=== PATIENT | female | born 1995 ===

== ENCOUNTER 2019-05-27 21:12 | Inpatient (IN) | payer SELFPAY ==
[2019-05-27] MEDS ORDERED: PEPCID IV ONE (21:17)
[2019-05-27] MEDS ORDERED: NACL 0.9% 1000 ML 1,000 ML IV ONE (21:17)
--- NOTE | 2019-05-27 21:18 | Emergency Department Report ---
ED General Adult HPI - General Chief complaint: Psych Stated complaint: no quierannette vivir Time Seen by Provider: 05/27/19 21:16 Source: patient, EMS (verbal report received from EMS.ems notes not available at time of chart dictation), RN notes reviewed Mode of arrival: Stretcher Limitations: No Limitations - History of Present Illness Initial comments: This is a 23-year-old female. The patient is brought to the hospital by EMS for reported suicide attempt. The patient to me states in Irish that she wants to . She denies physical pain. As per EMS, the patient drank an unknown quantity of bleach, ammonia and had an episode of unresponsivenes s/unconsciousness. Apparently, she fell outside In the field, the patient was awake and alert as per EMS, and was speaking in full sentences. The patient denies physical pain. The patient would not tell me what she drank. The patient will not tell me how much she drank. The patient states she is not having physical pain. The patient states she wants to The patient will not describe exacerbating or relieving factors. The patient follows commands. -: Sudden, This evening Quality: other Consistency: other Improves with: other Worsens with: other Associated Symptoms: other - Related Data Home Medications Medication Instructions Recorded Confirmed Last Taken No Known Home Medications [No 05/27/19 05/27/19 Unknown Reported Home Medications] Allergies Allergy/AdvReac Type Severity Reaction Status Date / Time No Known Allergies Allergy Unverified 05/27/19 22:46 ED Review of Systems ROS: Stated complaint: UNRESPONSIVE Other details as noted in HPI Comment: patient not forthcoming Cardiovascular: denies: chest pain Gastrointestinal: denies: abdominal pain ED Past Medical Hx - Medications Home Medications: Home Medications Medication Instructions Recorded Confirmed Last Taken Type No Known Home Medications [No 05/27/19 05/27/19 Unknown History Reported Home Medications] ED Physical Exam - General Limitations: Language Barrier General appearance: alert, anxious - Head Head exam: Present: atraumatic, normocephalic - Eye Eye exam: Present: normal appearance, EOMI - ENT ENT exam: Present: normal orophraynx, mucous membranes moist, normal external ear exam, other (patient speaking in full sentences. There is no stridor. There is no dysphonia. The patient will not open up her mouth to allow me to see the posterior pharynx. The visualized portion of the tongue is within normal limits. There is no abrasion noted to the right lateral aspect of the lower lip) - Neck Neck exam: Present: normal inspection, full ROM. Absent: tenderness, meningismus - Respiratory Respiratory exam: Present: normal lung sounds bilaterally. Absent: respiratory distress - Cardiovascular Cardiovascular Exam: Present: normal rhythm, tachycardia, normal heart sounds. Absent: systolic murmur, diastolic murmur, rubs, gallop - GI/Abdominal GI/Abdominal exam: Present: soft. Absent: distended, tenderness, guarding, rebound, rigid, pulsatile mass - Extremities Exam Extremities exam: Present: normal inspection, full ROM, other (2+ pulses noted in the bilateral upper, lower extremities. Compartments soft. No long bony tenderness. The pelvis is stable.). Absent: pedal edema, joint swelling, calf tenderness - Back Exam Back exam: Present: normal inspection, full ROM. Absent: tenderness, CVA tenderness (R), CVA tenderness (L), paraspinal tenderness, vertebral tenderness - Neurological Exam Neurological exam: Present: alert, other (there is no facial droop. The tongue is midline. The extraocular movements are intact bilaterally. Patient speaking in complete sentences. There is no stridor. There is no dysphonia. There is 5/5 strength right arm, right leg, left arm, left leg sensation is intact to light touch bilateral upper, lower extremities.) - Psychiatric Psychiatric exam: Present: anxious - Skin Skin exam: Present: warm, dry, intact, normal color. Absent: rash ED Course Vital Signs 05/27/19 05/27/19 05/27/19 21:20 21:21 21:31 Temperature 98.6 F Pulse Rate 117 H 122 H Respiratory 20 15 9 L Rate Blood Pressure 113/73 106/72 O2 Sat by Pulse 99 97 96 Oximetry 05/27/19 05/27/19 05/27/19 21:45 22:00 22:17 Temperature Pulse Rate 113 H 106 H 111 H Respiratory 16 18 13 Rate Blood Pressure 112/70 106/64 106/64 O2 Sat by Pulse 99 100 98 Oximetry 05/27/19 05/27/19 05/27/19 22:30 22:45 23:00 Temperature Pulse Rate 109 H 114 H 109 H Respiratory 19 18 17 Rate Blood Pressure 108/64 111/67 108/63 O2 Sat by Pulse 98 98 98 Oximetry 05/27/19 05/27/19 05/27/19 23:15 23:30 23:45 Temperature Pulse Rate 111 H 111 H 108 H Respiratory 14 19 13 Rate Blood Pressure 118/57 108/65 102/61 O2 Sat by Pulse 96 98 97 Oximetry 05/28/19 05/28/19 05/28/19 00:00 00:15 00:30 Temperature Pulse Rate 97 H 96 H Respiratory 17 17 Rate Blood Pressure 97/58 107/61 113/57 O2 Sat by Pulse 98 98 Oximetry 05/28/19 00:41 Temperature Pulse Rate 98 H Respiratory 16 Rate Blood Pressure 113/57 O2 Sat by Pulse 98 Oximetry - Reevaluation(s) Reevaluation #1: 05/27/19 21:56 Differential diagnosis, including not limited to: Caustic ingestion, suicidality, medical clearance Assessment and plan: 23-year-old female, nonfocal motor exam, awake, alert, follows commands, with reported complaint of overdose on bleach, and unknown time. [facility] was contacted by nursing team, please see their documentation. Patient placed on a 1013. Psychiatric consultation requested. Noncontrast CT scan of the brain is requested. X-ray of the chest, screening laboratory studies requested. Patient will require admission for airway observation, and gastroenterology consultation. Discussed with GI on-call, Dr. Hussein, who is benny nable to seeing the patient tomorrow in consultation. Doubt intracranial injury, however, we will obtain CT scan of the brain. Reevaluation #2: 05/27/19 23:00 Dr Izaiah Jimenez accepts to the hospital service Noncontrast CT scan of the brain is negative. Laboratory studies reviewed and appreciated. There is no midline cervical spine pain or tenderness. The patient is found to have an elevated blood alcohol level. X-ray of the cervical spine ordered; I think it is very unlikely that the patient has a cervical spine injury at this time. ED Medical Decision Making - Lab Data Result diagrams: 05/28/19 04:40 05/28/19 04:40 Lab Results 05/27/19 05/27/19 Range/Units 21:25 21:25 WBC 7.6 7.6 (4.5-11.0) K/mm3 RBC 4.72 4.71 (3.65-5.03) M/mm3 Hgb 13.8 13.8 (10.1-14.3) gm/dl Hct 39.9 40.2 (30.3-42.9) % MCV 85 85 (79-97) fl MCH 29 29 (28-32) pg MCHC 35 H 34 (30-34) % RDW 13.2 13.2 (13.2-15.2) % Plt Count 395 396 (140-440) K/mm3 Vital Signs 05/27/19 05/27/19 05/27/19 21:20 21:21 21:31 Temperature 98.6 F Pulse Rate 117 H 122 H Respiratory 20 15 9 L Rate Blood Pressure 113/73 106/72 O2 Sat by Pulse 99 97 96 Oximetry 05/27/19 05/27/19 05/27/19 21:45 22:00 22:17 Temperature Pulse Rate 113 H 106 H 111 H Respiratory 16 18 13 Rate Blood Pressure 112/70 106/64 106/64 O2 Sat by Pulse 99 100 98 Oximetry 05/27/19 22:30 Temperature Pulse Rate 109 H Respiratory 19 Rate Blood Pressure 108/64 O2 Sat by Pulse 98 Oximetry Lab Results 05/27/19 05/27/19 05/27/19 Range/Units 21:25 21:25 21:25 WBC 7.6 (4.5-11.0) K/mm3 RBC 4.72 (3.65-5.03) M/mm3 Hgb 13.8 (10.1-14.3) gm/dl Hct 39.9 (30.3-42.9) % MCV 85 (79-97) fl MCH 29 (28-32) pg MCHC 35 H (30-34) % RDW 13.2 (13.2-15.2) % Plt Count 395 (140-440) K/mm3 PT 13.4 (12.2-14.9) Sec. INR 1.05 (0.87-1.13) APTT 27.7 (24.2-36.6) Sec. Sodium 145 (137-145) mmol/L Potassium 4.0 (3.6-5.0) mmol/L Chloride 105.8 (98-107) mmol/L Carbon Dioxide 22 (22-30) mmol/L Anion Gap 21 mmol/L BUN 6 L (7-17) mg/dL Creatinine 0.6 L (0.7-1.2) mg/dL Estimated GFR > 60 ml/min BUN/Creatinine Ratio 10 % Glucose 109 H (65-100) mg/dL Calcium 9.3 (8.4-10.2) mg/dL Magnesium (1.7-2.3) mg/dL Total Bilirubin 0.20 (0.1-1.2) mg/dL AST 70 H (5-40) units/L ALT 109 H (7-56) units/L Alkaline Phosphatase 72 (35-129) units/L Total Creatine Kinase (30-135) units/L Total Protein 8.6 H (6.3-8.2) g/dL Albumin 4.7 (3.9-5) g/dL Albumin/Globulin Ratio 1.2 % Acetaminophen (10.0-30.0) ug/mL Plasma/Serum Alcohol (0-0.07) % 05/27/19 05/27/19 05/27/19 Range/Units 21:25 21:25 21:25 WBC 7.6 (4.5-11.0) K/mm3 RBC 4.71 (3.65-5.03) M/mm3 Hgb 13.8 (10.1-14.3) gm/dl Hct 40.2 (30.3-42.9) % MCV 85 (79-97) fl MCH 29 (28-32) pg MCHC 34 (30-34) % RDW 13.2 (13.2-15.2) % Plt Count 396 (140-440) K/mm3 PT 13.3 (12.2-14.9) Sec. INR 1.04 (0.87-1.13) APTT (24.2-36.6) Sec. Sodium (137-145) mmol/L Potassium (3.6-5.0) mmol/L Chloride (98-107) mmol/L Carbon Dioxide (22-30) mmol/L Anion Gap mmol/L BUN (7-17) mg/dL Creatinine (0.7-1.2) mg/dL Estimated GFR ml/min BUN/Creatinine Ratio % Glucose (65-100) mg/dL Calcium (8.4-10.2) mg/dL Magnesium 2.20 (1.7-2.3) mg/dL Total Bilirubin (0.1-1.2) mg/dL AST (5-40) units/L ALT (7-56) units/L Alkaline Phosphatase (35-129) units/L Total Creatine Kinase 166 H (30-135) units/L Total Protein (6.3-8.2) g/dL Albumin (3.9-5) g/dL Albumin/Globulin Ratio % Acetaminophen (10.0-30.0) ug/mL Plasma/Serum Alcohol (0-0.07) % 05/27/19 05/27/19 Range/Units 21:25 21:25 WBC (4.5-11.0) K/mm3 RBC (3.65-5.03) M/mm3 Hgb (10.1-14.3) gm/dl Hct (30.3-42.9) % MCV (79-97) fl MCH (28-32) pg MCHC (30-34) % RDW (13.2-15.2) % Plt Count (140-440) K/mm3 PT (12.2-14.9) Sec. INR (0.87-1.13) APTT (24.2-36.6) Sec. Sodium (137-145) mmol/L Potassium (3.6-5.0) mmol/L Chloride (98-107) mmol/L Carbon Dioxide (22-30) mmol/L Anion Gap mmol/L BUN (7-17) mg/dL Creatinine (0.7-1.2) mg/dL Estimated GFR ml/min BUN/Creatinine Ratio % Glucose (65-100) mg/dL Calcium (8.4-10.2) mg/dL Magnesium (1.7-2.3) mg/dL Total Bilirubin (0.1-1.2) mg/dL AST (5-40) units/L ALT (7-56) units/L Alkaline Phosphatase (35-129) units/L Total Creatine Kinase (30-135) units/L Total Protein (6.3-8.2) g/dL Albumin (3.9-5) g/dL Albumin/Globulin Ratio % Acetaminophen < 5.0 L (10.0-30.0) ug/mL Plasma/Serum Alcohol 0.18 H (0-0.07) % - EKG Data -: EKG Interpreted by Ia EKG shows normal: sinus rhythm Rate: tachycardia - EKG Data When compared to previous EKG there are: previous EKG unavailable 05/27/19 21:57 Sinus tachycardia, 106 bpm, QTC prolonged, normal axis, otherwise unremarkable EKG, there is no prior for comparison, the EKG is not consistent with ST elevation myocardial infarction. - Radiology Data Radiology results: pending, report reviewed, image reviewed interpreted by me: X-ray of the chest is negative for acute disease. Noncontrast CT scan of the brain is negative for acute disease. X-ray of the cervical spine is negative for acute disease. xr chest negative ct head, negative Critical care attestation.: If time is entered above; I have spent that time in minutes in the direct care of this critically ill patient, excluding procedure time. ED Disposition Clinical Impression: Ingestion of caustic substance, Suicidal behavior with attempted self-injury Disposition: 09 OP ADMIT IP TO THIS HOSP Is pt being admited?: Yes Condition: Serious
[2019-05-27 21:47] LABS: Hematocrit 40.2 % (30.3-42.9); Hemoglobin 13.8 gm/dl (10.1-14.3); Mean Corpuscular HGB Conc 34 % (30-34); Mean Corpuscular Volume 85 fl (79-97); Platelet Count 396 K/mm3 (140-440); Red Blood Count 4.71 M/mm3 (3.65-5.03); Red Cell Distribution Width 13.2 % (13.2-15.2)
[2019-05-27 21:48] LABS: Hematocrit 39.9 % (30.3-42.9); Hemoglobin 13.8 gm/dl (10.1-14.3); Mean Corpuscular HGB Conc 35 % (30-34); Mean Corpuscular Volume 85 fl (79-97); Platelet Count 395 K/mm3 (140-440); Red Blood Count 4.72 M/mm3 (3.65-5.03); Red Cell Distribution Width 13.2 % (13.2-15.2)
[2019-05-27 21:58] LABS: INR 1.04 (0.87-1.13); INR 1.05 (0.87-1.13)
[2019-05-27 21:59] LABS: Partial Thromboplastin Time 27.7 Sec. (24.2-36.6)
--- NOTE | 2019-05-27 22:09 | Event Note ---
Date: 05/27/19 patient with caustic ingestion, will recommend early endoscopy (tomorrow AM) as long as no signs/symptoms of perforation, as early endoscopy can accurately predict risk of stricture formation Please maintain NPO
--- NOTE | 2019-05-27 22:22 | XRay Report ---
CHEST 1 VIEW 05/27/2019 9:51 PM INDICATION / CLINICAL INFORMATION: Overdose. COMPARISON: None available. FINDINGS: SUPPORT DEVICES: None. HEART / MEDIASTINUM: No significant abnormality. LUNGS / PLEURA: No significant pulmonary or pleural abnormality. No pneumothorax. ADDITIONAL FINDINGS: No significant additional findings. IMPRESSION: No acute abnormality of the chest. Signer Name: Abdoul Alvarez MD Signed: 05/27/2019 10:18 PM Workstation Name: [id number]
--- NOTE | 2019-05-27 22:55 | Cat Scan Report ---
NONENHANCED CT SCAN OF THE NECK: INDICATION: Fell down; underresponsive; "drank ammonia" TECHNIQUE: Routine CT head without contrast. Sagittal and coronal reformatted images were obtained. A ll CT scans at this location are performed using CT dose reduction for ALARA by means of automated ex posure control. COMPARISON: None. FINDINGS: BRAIN / INTRACRANIAL CONTENTS: No acute hemorrhage, mass effect, midline shift, hydrocephalus, or acu te, large territorial infarct. No chronic infarct or focal atrophy. Normal brain volume and ventricul ar/sulcal size for age. No significant white matter abnormality. Basal ganglia are normal. CRANIOCERVICAL JUNCTION: No significant abnormality. ORBITS: No significant abnormality of visualized orbits. SINUSES / MASTOIDS: No significant abnormality of the visualized paranasal sinuses or mastoid air cedric ls. ADDITIONAL FINDINGS: None. IMPRESSION: CT scan of the brain. Signer Name: Patricia Dover MD Signed: 05/27/2019 10:51 PM Workstation Name: [id number]
[2019-05-27 22:57] LABS: Alanine Aminotransferase 109 units/L (7-56); Albumin 4.7 g/dL (3.9-5); BUN/Creatinine Ratio 10; Blood Urea Nitrogen 6 mg/dL (7-17); Calcium 9.3 mg/dL (8.4-10.2); Hemolysis Index 0
[2019-05-27 23:30] LABS: Bilirubin,Urine NEG (Negative); Blood,Urine NEG (Negative); Color,Urine Straw (Yellow); Protein,Urine <15 mg/dL mg/dL (Negative); RBC,Urine < 1.0 /HPF (0.0-6.0); Urobilinogen,Urine < 2.0 mg/dL (<2.0)
[2019-05-27] MEDS ORDERED: SODIUM CHLORIDE FLUSH SYRINGE 10 ML IV PRN (23:35)
[2019-05-27] MEDS ORDERED: TYLENOL PO PRN (23:35)
[2019-05-27] MEDS ORDERED: ZOFRAN IV PRN (23:35)
[2019-05-27] MEDS ORDERED: MORPHINE IV PRN (23:35)
[2019-05-27 23:37] LABS: Amphetamine Screen,Urine PRESUMPTIVE NEGATIVE; Benzodiazepines Screen,Urine PRESUMPTIVE NEGATIVE; Cannabinoid Screen,Urine PRESUMPTIVE NEGATIVE; Cocaine Screen,Urine PRESUMPTIVE NEGATIVE; Methadone Screen,Urine PRESUMPTIVE NEGATIVE; Opiate Screen,Urine PRESUMPTIVE NEGATIVE
--- NOTE | 2019-05-27 23:39 | History and Physical Report ---
History of Present Illness Date of examination: 05/27/19 History of present illness: 23-year-old woman with no medical problems was brought to the emergency room for evaluation. Family at bedside state that she drinks 6 beers today, she then felt dizzy and does not remember what happened. Also state that she has been demon possessed, edema and still hurry to do things to herself. Today after drinking 6 beers she drinks some cleaning agent, but she does not know the name, she was not aware that she was drinking 8, she said demons told her to do it. Currently he has burning in her stomach, no psychiatric history Review Of Systems: Constitutional: no weight loss, fever, chills Ears, eyes, nose, mouth and throat: no nasal congestion, no nasal discharge, no sinus pressure, blurry vision, diplopia Neck: No neck pain or rigidity. Cardiovascular: No palpitations, chest pain Respiratory: No shortness of breath, cough Gastrointestinal: No hematochezia, abdominal pain Genitourinary : no dysuria, frequency , hematuria Musculoskeletal: no muscle ache , joint pain Integumentary: no rash, no pruritis Neurological: no parathesias, focal weakness Endocrine: no cold or heat intolerance, no polyuria or polydipsia Hematologic/Lymphatic: no easy bruising, no easy bleeding, no gland swelling Allergic/Immunologic: no urticaria, no angioedema. PAST MEDICAL HISTORY:None PAST SURGICAL HISTORY:None FAMILY HISTORY:hypertension, diabetes SOCIAL HISTORY: Denies tobacco, drugs, +alcohol Medications and Allergies Allergies Allergy/AdvReac Type Severity Reaction Status Date / Time No Known Allergies Allergy Unverified 05/27/19 22:46 Home Medications Medication Instructions Recorded Confirmed Last Taken Type No Known Home Medications [No 05/27/19 05/27/19 Unknown History Reported Home Medications] Active Meds: Active Medications Acetaminophen (Tylenol) 650 mg PO Q4H PRN PRN Reason: Pain MILD(1-3)/Fever >100.5/LEVI Enoxaparin Sodium (Lovenox) 30 mg SUB-Q QDAY SLIM Sodium Chloride (Nacl 0.9% 1000 Ml) 1,000 mls @ 150 mls/hr IV DIRECT SLIM Morphine Sulfate (Morphine) 2 mg IV Q4H PRN PRN Reason: Pain, Moderate (4-6) Ondansetron HCl (Zofran) 4 mg IV Q8H PRN PRN Reason: Nausea And Vomiting Sodium Chloride (Sodium Chloride Flush Syringe 10 Ml) 10 ml IV BID SLIM Sodium Chloride (Sodium Chloride Flush Syringe 10 Ml) 10 ml IV PRN PRN PRN Reason: LINE FLUSH Exam - Physical Exam Narrative exam: General Apperance: The patient sitting in bed no acute distress HEENT: Normocephalic, atraumatic. Pupils equally round and reactive to light, extraocular movement intact, and no sclericterus or JVD or thyromegaly or nodule. Neck supple, no carotid bruit, mucous membranes moist, no exudate or erythema Heart: S1-S2, regular is rhythm Lungs: Clear to auscultation bilaterally, breathing comfortable Abdomen: Positive bowel sounds, soft, nontender, nondistended, no organomegaly Extremities: No edema cyanosis clubbing Skin: no rash, nodule, warm and dry Neuro:CN 2 -12 intact, motor/sensory intact, speech is fluent - Constitutional Vitals: Temp Pulse Resp BP Pulse Ox 98.6 F 111 H 19 108/65 98 05/27/19 21:20 05/27/19 23:30 05/27/19 23:30 05/27/19 23:30 05/27/19 23:30 Results - Labs CBC & Chem 7: 05/28/19 04:40 05/28/19 04:40 Labs: Abnormal lab results 05/27/19 05/27/19 05/27/19 Range/Units 21:25 21:25 21:25 MCHC 35 H (30-34) % BUN 6 L (7-17) mg/dL Creatinine 0.6 L (0.7-1.2) mg/dL Glucose 109 H (65-100) mg/dL AST 70 H (5-40) units/L ALT 109 H (7-56) units/L Total Creatine Kinase 166 H (30-135) units/L Total Protein 8.6 H (6.3-8.2) g/dL Salicylates (2.8-20.0) mg/dL Acetaminophen (10.0-30.0) ug/mL Plasma/Serum Alcohol (0-0.07) % 05/27/19 05/27/19 05/27/19 Range/Units 21:25 21:25 21:25 MCHC (30-34) % BUN (7-17) mg/dL Creatinine (0.7-1.2) mg/dL Glucose (65-100) mg/dL AST (5-40) units/L ALT (7-56) units/L Total Creatine Kinase (30-135) units/L Total Protein (6.3-8.2) g/dL Salicylates < 0.3 L (2.8-20.0) mg/dL Acetaminophen < 5.0 L (10.0-30.0) ug/mL Plasma/Serum Alcohol 0.18 H (0-0.07) % - Imaging and Cardiology Chest x-ray: report reviewed Assessment and Plan Assessment Ingestion of caustic agent Suicide attempt Plan Start IV fluids, Protonix, GI was consulted to see the patient Consult psych, 1013, DVT prophylaxis
--- NOTE | 2019-05-27 23:45 | XRay Report ---
CERVICAL SPINE 3 VIEWS. INDICATION / CLINICAL INFORMATION: fell intox psych COMPARISON: None available. FINDINGS: BONES / JOINT(S): No acute fracture or subluxation. No significant arthritis. SOFT TISSUES: No significant abnormality. ADDITIONAL FINDINGS: None. Signer Name: Rony Delgado MD Signed: 05/27/2019 11:40 PM Workstation Name: [id number]
[2019-05-28] MEDS: PROTONIX IV SCH ×3 (00:05→22:14)
[2019-05-28] MEDS: NACL 0.9% 1000 ML 1,000 ML IV SCH ×3 (04:58→22:18)
[2019-05-28 05:11] LABS: Basophils # (Auto) 0.1 K/mm3 (0.0-0.1); Basophils % (Auto) 0.7 % (0.0-1.8); Eosinophils # (Auto) 0.1 K/mm3 (0.0-0.4); Eosinophils % (Auto) 1.2 % (0.0-4.3); Hematocrit 38.4 % (30.3-42.9); Hemoglobin 13.2 gm/dl (10.1-14.3); Lymphocytes # (Auto) 3.6 K/mm3 (1.2-5.4); Lymphocytes % (Auto) 38.4 % (13.4-35.0); Mean Corpuscular HGB Conc 34 % (30-34); Mean Corpuscular Volume 86 fl (79-97); Monocytes # (Auto) 0.7 K/mm3 (0.0-0.8); Monocytes % (Auto) 7.5 % (0.0-7.3); Platelet Count 375 K/mm3 (140-440); Red Blood Count 4.45 M/mm3 (3.65-5.03); Red Cell Distribution Width 13.1 % (13.2-15.2)
[2019-05-28 05:31] LABS: BUN/Creatinine Ratio 10; Blood Urea Nitrogen 6 mg/dL (7-17); Calcium 8.7 mg/dL (8.4-10.2); Hemolysis Index 16
[2019-05-28] MEDS ORDERED: NACL 0.9% 1000 ML 1,000 ML IV SCH (09:00)
[2019-05-28] MEDS: SODIUM CHLORIDE FLUSH SYRINGE 10 ML IV SCH ×2 (09:44→22:15)
[2019-05-28] MEDS: LOVENOX SUB-Q SCH (09:44)
[2019-05-28] MEDS ORDERED: XYLOCAINE MPF 2% ONE (09:53)
[2019-05-28] MEDS ORDERED: DECADRON ONE (09:53)
[2019-05-28] MEDS ORDERED: XYLOCAINE CARDIAC IV ONE (09:53)
[2019-05-28] MEDS ORDERED: ZOFRAN ONE (09:53)
[2019-05-28] MEDS ORDERED: DIPRIVAN 10 MG/ML IV ONE (09:54)
[2019-05-28] MEDS ORDERED: VERSED ONE (09:56)
[2019-05-28 10:07] LABS: HCG Qualitative,Urine Negative (Negative)
--- NOTE | 2019-05-28 10:11 | Consultation ---
History of Present Illness - Reason for Consult Consult date: 05/28/19 Reason for consult: Mental Health Evaluation Requesting physician: NESSA LOPEZ - Chief Complaint Chief complaint: "The patient speak german" - History of Present Psychiatric Illness 23 y.o. female who presented to the ER for suicide attempt by drinking bleach and ammonia per the record. Today the assessment could not be completed because the rail director phone isn't working. Will attempt to assess the patient in 24 hours. Medications and Allergies Allergies Allergy/AdvReac Type Severity Reaction Status Date / Time No Known Allergies Allergy Unverified 05/27/19 22:46 Home Medications Medication Instructions Recorded Confirmed Last Taken Type No Known Home Medications [No 05/27/19 05/27/19 Unknown History Reported Home Medications] Active Meds: Active Medications Acetaminophen (Tylenol) 650 mg PO Q4H PRN PRN Reason: Pain MILD(1-3)/Fever >100.5/LEVI Enoxaparin Sodium (Lovenox) 40 mg SUB-Q QDAY [facility] Last Admin: 05/28/19 09:44 Dose: 40 mg Documented by: Sodium Chloride (Nacl 0.9% 1000 Ml) 1,000 mls @ 150 mls/hr IV DIRECT SLIM Last Admin: 05/28/19 04:58 Dose: 150 mls/hr Documented by: Sodium Chloride (Nacl 0.9% 1000 Ml) 1,000 mls @ 50 mls/hr IV DIRECT SLIM Morphine Sulfate (Morphine) 2 mg IV Q4H PRN PRN Reason: Pain, Moderate (4-6) Ondansetron HCl (Zofran) 4 mg IV Q8H PRN PRN Reason: Nausea And Vomiting Pantoprazole Sodium (Protonix) 40 mg IV BID [facility] Last Admin: 05/28/19 09:44 Dose: 40 mg Documented by: Sodium Chloride (Sodium Chloride Flush Syringe 10 Ml) 10 ml IV BID [facility] Last Admin: 05/28/19 09:44 Dose: 10 ml Documented by: Sodium Chloride (Sodium Chloride Flush Syringe 10 Ml) 10 ml IV PRN PRN PRN Reason: LINE FLUSH Past psychiatric history - Past Medical History Past Medical History: other (Unable to obtain ) Past Surgical History: Other (Unable to obtain ) - past Psychiatric treatment and history psychiatric treatment history: Unable to obtain a psy hx and fam psy hx. - Social History Social history: other (Unable to obtain ) Mental Status Exam - Vital signs Last Vital Signs Temp 98.4 F 05/28/19 08:00 Pulse 98 H 05/28/19 09:00 Resp 16 05/28/19 08:00 BP 117/71 05/28/19 06:00 Pulse Ox 99 05/28/19 08:00 - Exam Narrative exam: Unable to complete the MSE at this time. Results Result Diagrams: 05/28/19 04:40 05/28/19 04:40 Abnormal lab results 05/27/19 05/27/19 05/27/19 Range/Units 21:25 21:25 21:25 MCHC 35 H (30-34) % RDW (13.2-15.2) % Lymph % (Auto) (13.4-35.0) % Nicholas % (Auto) (0.0-7.3) % Chloride (98-107) mmol/L Carbon Dioxide (22-30) mmol/L BUN 6 L (7-17) mg/dL Creatinine 0.6 L (0.7-1.2) mg/dL Glucose 109 H (65-100) mg/dL AST 70 H (5-40) units/L ALT 109 H (7-56) units/L Total Creatine Kinase 166 H (30-135) units/L Total Protein 8.6 H (6.3-8.2) g/dL Salicylates (2.8-20.0) mg/dL Acetaminophen (10.0-30.0) ug/mL Plasma/Serum Alcohol (0-0.07) % 05/27/19 05/27/19 05/27/19 Range/Units 21:25 21:25 21:25 MCHC (30-34) % RDW (13.2-15.2) % Lymph % (Auto) (13.4-35.0) % Nicholas % (Auto) (0.0-7.3) % Chloride (98-107) mmol/L Carbon Dioxide (22-30) mmol/L BUN (7-17) mg/dL Creatinine (0.7-1.2) mg/dL Glucose (65-100) mg/dL AST (5-40) units/L ALT (7-56) units/L Total Creatine Kinase (30-135) units/L Total Protein (6.3-8.2) g/dL Salicylates < 0.3 L (2.8-20.0) mg/dL Acetaminophen < 5.0 L (10.0-30.0) ug/mL Plasma/Serum Alcohol 0.18 H (0-0.07) % 05/28/19 05/28/19 Range/Units 04:40 04:40 MCHC (30-34) % RDW 13.1 L (13.2-15.2) % Lymph % (Auto) 38.4 H (13.4-35.0) % Nicholas % (Auto) 7.5 H (0.0-7.3) % Chloride 107.5 H (98-107) mmol/L Carbon Dioxide 21 L (22-30) mmol/L BUN 6 L (7-17) mg/dL Creatinine 0.6 L (0.7-1.2) mg/dL Glucose (65-100) mg/dL AST (5-40) units/L ALT (7-56) units/L Total Creatine Kinase (30-135) units/L Total Protein (6.3-8.2) g/dL Salicylates (2.8-20.0) mg/dL Acetaminophen (10.0-30.0) ug/mL Plasma/Serum Alcohol (0-0.07) % All other labs normal. Assessment and Plan Assessment and plan: Impression: Today the assessment could not be completed at this time because the rail director phone isn't working. Recommendation/Plan: Continue 1013 and attempt to reassess the patient in 24 hours[address] Will staff with Dr Cora Norwood.
[2019-05-28] MEDS ORDERED: WATER FOR IRRIG STERILE IR ONE (10:28)
[2019-05-28] MEDS ORDERED: WATER FOR IRRIG STERILE ONE (10:28)
[2019-05-28] MEDS ORDERED: NACL 0.9% 1000 ML 1,000 ML ONE (10:29)
[2019-05-28] MEDS ORDERED: PHENYLEPHRINE/NS Syringe 1,000 MCG/10 ML IV ONE (10:30)
--- NOTE | 2019-05-28 11:07 | Gastroenterology Consultation ---
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 Currently reports mouth a little sore, otherwise feeling ok. Past History Past Medical History: No medical history, other (Unable to obtain ) Past Surgical History: , Other Social history: no significant social history, other (Unable to obtain ) Family history: no significant family history Medications and Allergies Allergies Allergy/AdvReac Type Severity Reaction Status Date / Time No Known Allergies Allergy Unverified 05/27/19 22:46 Home Medications Medication Instructions Recorded Confirmed Last Taken Type No Known Home Medications [No 05/27/19 05/27/19 Unknown History Reported Home Medications] Active Meds: Active Medications Acetaminophen (Tylenol) 650 mg PO Q4H PRN PRN Reason: Pain MILD(1-3)/Fever >100.5/LEVI Enoxaparin Sodium (Lovenox) 40 mg SUB-Q QDAY [facility] Last Admin: 05/28/19 09:44 Dose: 40 mg Documented by: Sodium Chloride (Nacl 0.9% 1000 Ml) 1,000 mls @ 150 mls/hr IV DIRECT [facility] Last Admin: 05/28/19 04:58 Dose: 150 mls/hr Documented by: Sodium Chloride (Nacl 0.9% 1000 Ml) 1,000 mls @ 50 mls/hr IV DIRECT SLIM Morphine Sulfate (Morphine) 2 mg IV Q4H PRN PRN Reason: Pain, Moderate (4-6) Ondansetron HCl (Zofran) 4 mg IV Q8H PRN PRN Reason: Nausea And Vomiting Pantoprazole Sodium (Protonix) 40 mg IV BID [facility] Last Admin: 05/28/19 09:44 Dose: 40 mg Documented by: Sodium Chloride (Sodium Chloride Flush Syringe 10 Ml) 10 ml IV BID [facility] Last Admin: 05/28/19 09:44 Dose: 10 ml Documented by: Sodium Chloride (Sodium Chloride Flush Syringe 10 Ml) 10 ml IV PRN PRN PRN Reason: LINE FLUSH Review of Systems - Review of Systems All systems: negative (mouth pain) Exam - Constitutional Vital Signs: Temp Pulse Resp BP Pulse Ox 98.4 F 98 H 16 117/71 99 05/28/19 08:00 05/28/19 09:00 05/28/19 08:00 05/28/19 06:00 05/28/19 08:00 General appearance: no acute distress - EENT Eyes: EOM intact ENT: other (sloughing of the mucosa of the tongue which is slightly edamatous and red; posterior oropharynx does not appear to have significant damage in my limited view) - Neck Neck: supple - Respiratory Respiratory effort: normal - Cardiovascular Rhythm: regular - Gastrointestinal General gastrointestinal: Present: soft, non-tender, normal bowel sounds - Integumentary Integumentary: Present: warm, dry - Musculoskeletal Musculoskeletal: normal - Neurologic Neurological: alert and oriented x3 - Psychiatric Psychiatric: appropriate mood/affect - Labs CBC & Chem 7: 05/28/19 04:40 05/28/19 04:40 Lab Results: Laboratory Results - last 24 hr 05/27/19 05/27/19 05/27/19 21:25 21:25 21:25 WBC 7.6 RBC 4.72 Hgb 13.8 Hct 39.9 MCV 85 MCH 29 MCHC 35 H RDW 13.2 Plt Count 395 Lymph % (Auto) [place] % (Auto) Eos % (Auto) Baso % (Auto) Lymph # [place] # Eos # Baso # Seg Neutrophils % Seg Neutrophils # PT 13.4 INR 1.05 APTT 27.7 Sodium 145 Potassium 4.0 Chloride 105.8 Carbon Dioxide 22 Anion Gap 21 BUN 6 L Creatinine 0.6 L Estimated GFR > 60 BUN/Creatinine Ratio 10 Glucose 109 H Calcium 9.3 Magnesium Total Bilirubin 0.20 AST 70 H ALT 109 H Alkaline Phosphatase 72 Total Creatine Kinase Total Protein 8.6 H Albumin 4.7 Albumin/Globulin Ratio 1.2 Urine Color Urine Turbidity Urine pH Ur Specific [place] Urine Protein Urine Glucose (UA) Urine Ketones Urine Blood Urine Nitrite Urine Bilirubin Urine Urobilinogen Ur Leukocyte Esterase Urine WBC (Auto) Urine RBC (Auto) U Epithel Cells (Auto) Urine HCG, Qual Salicylates Urine Opiates Screen Urine Methadone Screen Acetaminophen Ur Barbiturates Screen Ur Phencyclidine Scrn Ur Amphetamines Screen U Benzodiazepines Scrn Urine Cocaine Screen U Marijuana (THC) Screen Drugs of Abuse Note Plasma/Serum Alcohol 05/27/19 05/27/19 05/27/19 21:25 21:25 21:25 WBC 7.6 RBC 4.71 Hgb 13.8 Hct 40.2 MCV 85 MCH 29 MCHC 34 RDW 13.2 Plt Count 396 Lymph % (Auto) [place] % (Auto) Eos % (Auto) Baso % (Auto) Lymph # [place] # Eos # Baso # Seg Neutrophils % Seg Neutrophils # PT 13.3 INR 1.04 APTT Sodium Potassium Chloride Carbon Dioxide Anion Gap BUN Creatinine Estimated GFR BUN/Creatinine Ratio Glucose Calcium Magnesium 2.20 Total Bilirubin AST ALT Alkaline Phosphatase Total Creatine Kinase 166 H Total Protein Albumin Albumin/Globulin Ratio Urine Color Urine Turbidity Urine pH Ur Specific [place] Urine Protein Urine Glucose (UA) Urine Ketones Urine Blood Urine Nitrite Urine Bilirubin Urine Urobilinogen Ur Leukocyte Esterase Urine WBC (Auto) Urine RBC (Auto) U Epithel Cells (Auto) Urine HCG, Qual Salicylates Urine Opiates Screen Urine Methadone Screen Acetaminophen Ur Barbiturates Screen Ur Phencyclidine Scrn Ur Amphetamines Screen U Benzodiazepines Scrn Urine Cocaine Screen U Marijuana (THC) Screen Drugs of Abuse Note Plasma/Serum Alcohol 05/27/19 05/27/19 05/27/19 21:25 21:25 21:25 WBC RBC Hgb Hct MCV MCH MCHC RDW Plt Count Lymph % (Auto) [place] % (Auto) Eos % (Auto) Baso % (Auto) Lymph # [place] # Eos # Baso # Seg Neutrophils % Seg Neutrophils # PT INR APTT Sodium Potassium Chloride Carbon Dioxide Anion Gap BUN Creatinine Estimated GFR BUN/Creatinine Ratio Glucose Calcium Magnesium Total Bilirubin AST ALT Alkaline Phosphatase Total Creatine Kinase Total Protein Albumin Albumin/Globulin Ratio Urine Color Urine Turbidity Urine pH Ur Specific [place] Urine Protein Urine Glucose (UA) Urine Ketones Urine Blood Urine Nitrite Urine Bilirubin Urine Urobilinogen Ur Leukocyte Esterase Urine WBC (Auto) Urine RBC (Auto) U Epithel Cells (Auto) Urine HCG, Qual Salicylates < 0.3 L Urine Opiates Screen Urine Methadone Screen Acetaminophen < 5.0 L Ur Barbiturates Screen Ur Phencyclidine Scrn Ur Amphetamines Screen U Benzodiazepines Scrn Urine Cocaine Screen U Marijuana (THC) Screen Drugs of Abuse Note Plasma/Serum Alcohol 0.18 H 05/27/19 05/27/19 05/28/19 23:18 23:18 04:40 WBC 9.5 RBC 4.45 Hgb 13.2 Hct 38.4 MCV 86 MCH 30 MCHC 34 RDW 13.1 L Plt Count 375 Lymph % (Auto) 38.4 H [place] % (Auto) 7.5 H Eos % (Auto) 1.2 Baso % (Auto) 0.7 Lymph # 3.6 [place] # 0.7 Eos # 0.1 Baso # 0.1 Seg Neutrophils % 52.2 Seg Neutrophils # 5.0 PT INR APTT Sodium Potassium Chloride Carbon Dioxide Anion Gap BUN Creatinine Estimated GFR BUN/Creatinine Ratio Glucose Calcium Magnesium Total Bilirubin AST ALT Alkaline Phosphatase Total Creatine Kinase Total Protein Albumin Albumin/Globulin Ratio Urine Color Straw Urine Turbidity Clear Urine pH 5.0 Ur Specific [place] 1.006 Urine Protein <15 mg/dl Urine Glucose (UA) Neg Urine Ketones Neg Urine Blood Neg Urine Nitrite Neg Urine Bilirubin Neg Urine Urobilinogen < 2.0 Ur Leukocyte Esterase Neg Urine WBC (Auto) 1.0 Urine RBC (Auto) < 1.0 U Epithel Cells (Auto) 1.0 Urine HCG, Qual Salicylates Urine Opiates Screen Presumptive negative Urine Methadone Screen Presumptive negative Acetaminophen Ur Barbiturates Screen Presumptive negative Ur Phencyclidine Scrn Presumptive negative Ur Amphetamines Screen Presumptive negative U Benzodiazepines Scrn Presumptive negative Urine Cocaine Screen Presumptive negative U Marijuana (THC) Screen Presumptive negative Drugs of Abuse Note Disclamer Plasma/Serum Alcohol 05/28/19 05/28/19 04:40 09:32 WBC RBC Hgb Hct MCV MCH MCHC RDW Plt Count Lymph % (Auto) [place] % (Auto) Eos % (Auto) Baso % (Auto) Lymph # [place] # Eos # Baso # Seg Neutrophils % Seg Neutrophils # PT INR APTT Sodium 145 Potassium 4.0 Chloride 107.5 H Carbon Dioxide 21 L Anion Gap 21 BUN 6 L Creatinine 0.6 L Estimated GFR > 60 BUN/Creatinine Ratio 10 Glucose 86 Calcium 8.7 Magnesium Total Bilirubin AST ALT Alkaline Phosphatase Total Creatine Kinase Total Protein Albumin Albumin/Globulin Ratio Urine Color Urine Turbidity Urine pH Ur Specific [place] Urine Protein Urine Glucose (UA) Urine Ketones Urine Blood Urine Nitrite Urine Bilirubin Urine Urobilinogen Ur Leukocyte Esterase Urine WBC (Auto) Urine RBC (Auto) U Epithel Cells (Auto) Urine HCG, Qual Negative Salicylates Urine Opiates Screen Urine Methadone Screen Acetaminophen Ur Barbiturates Screen Ur Phencyclidine Scrn Ur Amphetamines Screen U Benzodiazepines Scrn Urine Cocaine Screen U Marijuana (THC) Screen Drugs of Abuse Note Plasma/Serum Alcohol Assessment and Plan Caustic ingestion with bleach and ammonia, will need EGD for risk stratification for stricture formation and perforation/fistulization, no evidence for perforation so will proceed with urgent EGD. This was all discussed in detail with the patient using the telephone interpreter for the deaf and questions were answered custodial, patient will be at increased risk of esophageal cancer and so will need to follow up with me starting in 2028 (10 years after the ingestion) as long as remains asymptomatic with no dysphagia, if she develops symptoms then she would need to see me sooner Final recs based upon EGD results - Patient Problems (1) Ingestion of caustic substance Current Visit: Yes Status: Acute
--- NOTE | 2019-05-28 11:14 | Operative Report ---
Operative Report Operative Report: DOS: 05/28/19 SURGEON: Niranjan Hussein MD EGD REPORT PREOPERATIVE DIAGNOSIS and POSTOPERATIVE DIAGNOSIS: Caustic Ingestion ESTIMATED BLOOD LOSS: none DESCRIPTION OF PROCEDURE: A high-resolution EGD scope was passed through the oropharynx, esophagus, stomach, and second portion of duodenum. The scope was carefully withdrawn. Retroflexion was performed in the stomach. At the end of the procedure, the scope was cleaned using normal technique. Vital signs monitored continuously throughout. SEDATION: Provided by Anesthesiology Services. COMPLICATIONS: None. FINDINGS: * Normal duodenum * Mild diffuse gastritis of the stomach with erythema * GE junction at 37cm from the incisors * Per Zargar Classification, patient with 2A grade esophageal injury. Specifically, diffuse mucosal exudates and sloughing of mucosa without necrosis nor deep ulcers RECOMMENDATIONS: * May start liquid diet now * May advance to regular diet tomorrow if patient clinically continues to do well * Recommend PPI to prevent stress ulcers for the next 30 days * Patient now unfortunately is at significantly elevated risk for esophageal cancer and requires EGD every 2-3 years starting in about 10 years from now. * Patient fortunately has low risk of perforation or stricture formation based upon the EGD appearance and therefore after discharge can follow up with GI PRN (until 10 years from now at which point she will need routine EGD's as above) * Lastly, final disposition for psych eval given suicide attempt
--- NOTE | 2019-05-28 11:42 | Anesthesia Day of Surgery ---
Anesthesia Day of Surgery - Day of Surgery Patient Examined: Yes Patient H&P Reviewed: Yes Patient is NPO: Yes
--- NOTE | 2019-05-28 11:43 | Anesthesia Consultation ---
Anesthesia Consult and Med Hx Date of service: 05/28/19 - Airway Anesthetic Teeth Evaluation: Good ROM Head & Neck: Adequate Mental/Hyoid Distance: Adequate Mallampati Class: Class II Intubation Access Assessment: Good - Pre-Operative Health Status ASA Pre-Surgery Classification: ASA2, Emergency Proposed Anesthetic Plan: MAC - Central Nervous System Hx Psychiatric Problems: Yes (Suicide Attempt) - Endocrine Hx Liver Disease: Yes (Elevated LFTs)
--- NOTE | 2019-05-28 11:44 | Post Anesthesia Evaluation ---
- Post Anesthesia Evaluation Patient Participated: Yes Airway Patent: Yes Stable Respiratory Function: Yes Nausea/Vomiting: No Temp > 96.8F: Yes Pain Manageable: Yes Adequeate Hydration: Yes (Required extra IVF) Anesthesia Complications: No Block Receding Appropriately: Not Applicable Patient on Ventilator: No
--- NOTE | 2019-05-28 22:22 | Progress Note ---
Assessment and Plan Assessment and plan: History of present illness: 23-year-old woman with no medical problems was brought to the emergency room for evaluation. Family at bedside state that she drinks 6 beers today, she then felt dizzy and does not remember what happened. Also state that she has been demon possessed, edema and still hurry to do things to herself. after drinking 6 beers she drinks some cleaning agent, but she does not know the name, she was not aware that she was drinking 8, she said demons told her to do it. Currently he has burning in her stomach, no psychiatric history SI, attempt 1013, MH consult Gastritis -likely due to drinking caustic cleaning material -EGD report reviewed, dw GI, diet started History Interval history: she continues to feel depressed, and feels like her demons are chasing her She has epigastric pain but it is improved no vomiting no cp, no sob, no fever Hospitalist Physical - Physical exam Narrative exam: General appearance: Present: no acute distress - EENT Eyes: Present: PERRL ENT: hearing intact - Neck Neck: Present: supple - Respiratory Respiratory effort: normal Respiratory: bilateral: CTA - Cardiovascular Rhythm: regular Heart Sounds: Present: S1 & S2 - Extremities Extremities: no ischemia - Abdominal General gastrointestinal: soft, non-tender - Integumentary Integumentary: Present: clear, warm - Psychiatric Psychiatric: no appropriate mood/affect, no intact judgment & insight - Neurologic Neurologic: CNII-XII intact, no focal deficits - Constitutional Vitals: Temp Pulse Resp BP Pulse Ox 98.7 F 104 H 14 100/49 97 05/28/19 20:00 05/28/19 17:00 05/28/19 16:00 05/28/19 15:00 05/28/19 16:00 Results - Labs CBC & Chem 7: 05/29/19 09:39 05/29/19 09:39 Labs: Laboratory Last Values WBC 9.5 K/mm3 (4.5-11.0) 05/28/19 04:40 RBC 4.45 M/mm3 (3.65-5.03) 05/28/19 04:40 Hgb 13.2 gm/dl (10.1-14.3) 05/28/19 04:40 Hct 38.4 % (30.3-42.9) 05/28/19 04:40 MCV 86 fl (79-97) 05/28/19 04:40 MCH 30 pg (28-32) 05/28/19 04:40 MCHC 34 % (30-34) 05/28/19 04:40 RDW 13.1 % (13.2-15.2) L 05/28/19 04:40 Plt Count 375 K/mm3 (140-440) 05/28/19 04:40 Lymph % (Auto) 38.4 % (13.4-35.0) H 05/28/19 04:40 [place] % (Auto) 7.5 % (0.0-7.3) H 05/28/19 04:40 Eos % (Auto) 1.2 % (0.0-4.3) 05/28/19 04:40 Baso % (Auto) 0.7 % (0.0-1.8) 05/28/19 04:40 Lymph # 3.6 K/mm3 (1.2-5.4) 05/28/19 04:40 [place] # 0.7 K/mm3 (0.0-0.8) 05/28/19 04:40 Eos # 0.1 K/mm3 (0.0-0.4) 05/28/19 04:40 Baso # 0.1 K/mm3 (0.0-0.1) 05/28/19 04:40 Seg Neutrophils % 52.2 % (40.0-70.0) 05/28/19 04:40 Seg Neutrophils # 5.0 K/mm3 (1.8-7.7) 05/28/19 04:40 PT 13.3 Sec. (12.2-14.9) 05/27/19 21:25 PT 13.4 Sec. (12.2-14.9) 05/27/19 21:25 INR 1.04 (0.87-1.13) 05/27/19 21:25 INR 1.05 (0.87-1.13) 05/27/19 21:25 APTT 27.7 Sec. (24.2-36.6) 05/27/19 21:25 Sodium 145 mmol/L (137-145) 05/28/19 04:40 Potassium 4.0 mmol/L (3.6-5.0) 05/28/19 04:40 Chloride 107.5 mmol/L (98-107) H 05/28/19 04:40 Carbon Dioxide 21 mmol/L (22-30) L 05/28/19 04:40 21 mmol/L 05/28/19 04:40 BUN 6 mg/dL (7-17) L 05/28/19 04:40 0.6 mg/dL (0.7-1.2) L 05/28/19 04:40 Estimated GFR > 60 ml/min 05/28/19 04:40 10 % 05/28/19 04:40 Glucose 86 mg/dL (65-100) 05/28/19 04:40 Calcium 8.7 mg/dL (8.4-10.2) 05/28/19 04:40 Magnesium 2.20 mg/dL (1.7-2.3) 05/27/19 21:25 0.20 mg/dL (0.1-1.2) 05/27/19 21:25 AST 70 units/L (5-40) H 05/27/19 21:25 ALT 109 units/L (7-56) H 05/27/19 21:25 72 units/L (35-129) 05/27/19 21:25 166 units/L (30-135) H 05/27/19 21:25 8.6 g/dL (6.3-8.2) H 05/27/19 21:25 4.7 g/dL (3.9-5) 05/27/19 21:25 1.2 % 05/27/19 21:25 HCG, Qual Negative (Negative) 05/28/19 08:14 Straw (Yellow) 05/27/19 23:18 Clear (Clear) 05/27/19 23:18 5.0 (5.0-7.0) 05/27/19 23:18 Ur Specific [place] 1.006 (1.003-1.030) 05/27/19 23:18 <15 mg/dl mg/dL (Negative) 05/27/19 23:18 Neg mg/dL (Negative) 05/27/19 23:18 Neg mg/dL (Negative) 05/27/19 23:18 Neg (Negative) 05/27/19 23:18 Neg (Negative) 05/27/19 23:18 Neg (Negative) 05/27/19 23:18 < 2.0 mg/dL (<2.0) 05/27/19 23:18 Ur Leukocyte Esterase Neg (Negative) 05/27/19 23:18 1.0 /HPF (0.0-6.0) 05/27/19 23:18 < 1.0 /HPF (0.0-6.0) 05/27/19 23:18 U Epithel Cells (Auto) 1.0 /HPF (0-13.0) 05/27/19 23:18 Urine HCG, Qual Negative (Negative) 05/28/19 09:32 Salicylates < 0.3 mg/dL (2.8-20.0) L 05/27/19 21:25 Presumptive negative 05/27/19 23:18 Presumptive negative 05/27/19 23:18 Acetaminophen < 5.0 ug/mL (10.0-30.0) L 05/27/19 21:25 Ur Barbiturates Screen Presumptive negative 05/27/19 23:18 Ur Phencyclidine Scrn Presumptive negative 05/27/19 23:18 Ur Amphetamines Screen Presumptive negative 05/27/19 23:18 U Benzodiazepines Scrn Presumptive negative 05/27/19 23:18 Presumptive negative 05/27/19 23:18 U Marijuana (THC) Screen Presumptive negative 05/27/19 23:18 Disclamer 05/27/19 23:18 Plasma/Serum Alcohol 0.18 % (0-0.07) H 05/27/19 21:25 Active Medications - Current Medications Current Medications: Generic Name Dose Route Start Last Admin Trade Name Freq PRN Reason Stop Dose Admin Acetaminophen 650 mg 05/27/19 23:35 Tylenol PO Q4H PRN Pain MILD(1-3)/Fever >100.5/LEVI Enoxaparin Sodium 40 mg 05/28/19 10:00 05/28/19 09:44 Lovenox SUB-Q 40 mg QDAY SLIM Administration Sodium Chloride 1,000 mls @ 150 mls/hr 05/27/19 23:45 05/28/19 22:18 Nacl 0.9% 1000 Ml IV 150 mls/hr DIRECT SLIM Administration Sodium Chloride 1,000 mls @ 50 mls/hr 05/28/19 09:00 Nacl 0.9% 1000 Ml IV DIRECT SLIM Morphine Sulfate 2 mg 05/27/19 23:35 Morphine IV Q4H PRN Pain, Moderate (4-6) Ondansetron HCl 4 mg 05/27/19 23:35 Zofran IV Q8H PRN Nausea And Vomiting Pantoprazole Sodium 40 mg 05/27/19 23:39 05/28/19 22:14 Protonix IV 40 mg BID SLIM Administration Sodium Chloride 10 ml 05/28/19 10:00 05/28/19 22:15 Sodium Chloride Flush Syringe 10 Ml IV 10 ml BID SLIM Administration Sodium Chloride 10 ml 05/27/19 23:35 Sodium Chloride Flush Syringe 10 Ml IV PRN PRN LINE FLUSH
[2019-05-29] MEDS: NACL 0.9% 1000 ML 1,000 ML IV SCH ×3 (04:12→15:04)
[2019-05-29 09:49] LABS: Basophils % (Auto) 0.5 % (0.0-1.8); Eosinophils # (Auto) 0.1 K/mm3 (0.0-0.4); Eosinophils % (Auto) 1.5 % (0.0-4.3); Hematocrit 36.1 % (30.3-42.9); Hemoglobin 12.4 gm/dl (10.1-14.3); Lymphocytes # (Auto) 2.7 K/mm3 (1.2-5.4); Lymphocytes % (Auto) 38.3 % (13.4-35.0); Mean Corpuscular HGB Conc 34 % (30-34); Mean Corpuscular Volume 87 fl (79-97); Monocytes # (Auto) 0.4 K/mm3 (0.0-0.8); Monocytes % (Auto) 6.3 % (0.0-7.3); Platelet Count 323 K/mm3 (140-440); Red Blood Count 4.17 M/mm3 (3.65-5.03); Red Cell Distribution Width 12.9 % (13.2-15.2)
[2019-05-29] MEDS: PROTONIX PO SCH ×2 (10:00→21:35)
[2019-05-29] MEDS: SODIUM CHLORIDE FLUSH SYRINGE 10 ML IV SCH ×2 (10:00→21:36)
[2019-05-29] MEDS: LOVENOX SUB-Q SCH (10:00)
--- NOTE | 2019-05-29 10:03 | Progress Note ---
Assessment and Plan Assessment and plan: History of present illness: 23-year-old woman with no medical problems was brought to the emergency room for evaluation. Family at bedside state that she drinks 6 beers today, she then felt dizzy and does not remember what happened. Also state that she has been demon possessed, edema and still hurry to do things to herself. after drinking 6 beers she drinks some cleaning agent, but she does not know the name, she was not aware that she was drinking 8, she said demons told her to do it. Currently he has burning in her stomach, no psychiatric history SI, attempt 1013, MH consult Gastritis -likely due to drinking caustic cleaning material -EGD report reviewed, dw GI, diet started -diffuse gastritis seen on EGD. PPI, needs egd every 2-3 years for the next 10 years, as her risk is increased for malignancies. dvt ppx- scds and early ambulation History Interval history: she continues to feel depressed, and feels like her demons are chasing her She has epigastric pain but it is improved no vomiting no cp, no sob, no fever Hospitalist Physical - Constitutional Vitals: Temp Pulse Resp BP Pulse Ox 97.6 F 68 14 115/65 99 05/29/19 08:00 05/29/19 05:00 05/29/19 04:00 05/29/19 02:51 05/29/19 08:09 General appearance: Present: no acute distress - EENT Eyes: Present: PERRL ENT: hearing intact - Neck Neck: Present: supple - Respiratory Respiratory effort: normal Respiratory: bilateral: CTA - Cardiovascular Rhythm: regular Heart Sounds: Present: S1 & S2 - Extremities Extremities: no ischemia - Abdominal General gastrointestinal: soft, non-tender - Integumentary Integumentary: Present: clear, warm - Psychiatric Psychiatric: no appropriate mood/affect, no intact judgment & insight - Neurologic Neurologic: CNII-XII intact, no focal deficits Results - Labs CBC & Chem 7: 05/29/19 09:39 05/29/19 09:39 Labs: Laboratory Last Values WBC 6.9 K/mm3 (4.5-11.0) 05/29/19 09:39 RBC 4.17 M/mm3 (3.65-5.03) 05/29/19 09:39 Hgb 12.4 gm/dl (10.1-14.3) 05/29/19 09:39 Hct 36.1 % (30.3-42.9) 05/29/19 09:39 MCV 87 fl (79-97) 05/29/19 09:39 MCH 30 pg (28-32) 05/29/19 09:39 MCHC 34 % (30-34) 05/29/19 09:39 RDW 12.9 % (13.2-15.2) L 05/29/19 09:39 Plt Count 323 K/mm3 (140-440) 05/29/19 09:39 Lymph % (Auto) 38.3 % (13.4-35.0) H 05/29/19 09:39 [place] % (Auto) 6.3 % (0.0-7.3) 05/29/19 09:39 Eos % (Auto) 1.5 % (0.0-4.3) 05/29/19 09:39 Baso % (Auto) 0.5 % (0.0-1.8) 05/29/19 09:39 Lymph # 2.7 K/mm3 (1.2-5.4) 05/29/19 09:39 [place] # 0.4 K/mm3 (0.0-0.8) 05/29/19 09:39 Eos # 0.1 K/mm3 (0.0-0.4) 05/29/19 09:39 Baso # 0.0 K/mm3 (0.0-0.1) 05/29/19 09:39 Seg Neutrophils % 53.4 % (40.0-70.0) 05/29/19 09:39 Seg Neutrophils # 3.7 K/mm3 (1.8-7.7) 05/29/19 09:39 PT 13.3 Sec. (12.2-14.9) 05/27/19 21:25 PT 13.4 Sec. (12.2-14.9) 05/27/19 21:25 INR 1.04 (0.87-1.13) 05/27/19 21:25 INR 1.05 (0.87-1.13) 05/27/19 21:25 APTT 27.7 Sec. (24.2-36.6) 05/27/19 21:25 Sodium 145 mmol/L (137-145) 05/28/19 04:40 Potassium 4.0 mmol/L (3.6-5.0) 05/28/19 04:40 Chloride 107.5 mmol/L (98-107) H 05/28/19 04:40 Carbon Dioxide 21 mmol/L (22-30) L 05/28/19 04:40 21 mmol/L 05/28/19 04:40 BUN 6 mg/dL (7-17) L 05/28/19 04:40 0.6 mg/dL (0.7-1.2) L 05/28/19 04:40 Estimated GFR > 60 ml/min 05/28/19 04:40 10 % 05/28/19 04:40 Glucose 86 mg/dL (65-100) 05/28/19 04:40 Calcium 8.7 mg/dL (8.4-10.2) 05/28/19 04:40 Magnesium 2.20 mg/dL (1.7-2.3) 05/27/19 21:25 0.20 mg/dL (0.1-1.2) 05/27/19 21:25 AST 70 units/L (5-40) H 05/27/19 21:25 ALT 109 units/L (7-56) H 05/27/19 21:25 72 units/L (35-129) 05/27/19 21:25 166 units/L (30-135) H 05/27/19 21:25 8.6 g/dL (6.3-8.2) H 05/27/19 21:25 4.7 g/dL (3.9-5) 05/27/19 21:25 1.2 % 05/27/19 21:25 HCG, Qual Negative (Negative) 05/28/19 08:14 Straw (Yellow) 05/27/19 23:18 Clear (Clear) 05/27/19 23:18 5.0 (5.0-7.0) 05/27/19 23:18 Ur Specific [place] 1.006 (1.003-1.030) 05/27/19 23:18 <15 mg/dl mg/dL (Negative) 05/27/19 23:18 Neg mg/dL (Negative) 05/27/19 23:18 Neg mg/dL (Negative) 05/27/19 23:18 Neg (Negative) 05/27/19 23:18 Neg (Negative) 05/27/19 23:18 Neg (Negative) 05/27/19 23:18 < 2.0 mg/dL (<2.0) 05/27/19 23:18 Ur Leukocyte Esterase Neg (Negative) 05/27/19 23:18 1.0 /HPF (0.0-6.0) 05/27/19 23:18 < 1.0 /HPF (0.0-6.0) 05/27/19 23:18 U Epithel Cells (Auto) 1.0 /HPF (0-13.0) 05/27/19 23:18 Urine HCG, Qual Negative (Negative) 05/28/19 09:32 Salicylates < 0.3 mg/dL (2.8-20.0) L 05/27/19 21:25 Presumptive negative 05/27/19 23:18 Presumptive negative 05/27/19 23:18 Acetaminophen < 5.0 ug/mL (10.0-30.0) L 05/27/19 21:25 Ur Barbiturates Screen Presumptive negative 05/27/19 23:18 Ur Phencyclidine Scrn Presumptive negative 05/27/19 23:18 Ur Amphetamines Screen Presumptive negative 05/27/19 23:18 U Benzodiazepines Scrn Presumptive negative 05/27/19 23:18 Presumptive negative 05/27/19 23:18 U Marijuana (THC) Screen Presumptive negative 05/27/19 23:18 Disclamer 05/27/19 23:18 Plasma/Serum Alcohol 0.18 % (0-0.07) H 05/27/19 21:25 Active Medications - Current Medications Current Medications: Generic Name Dose Route Start Last Admin Trade Name Freq PRN Reason Stop Dose Admin Acetaminophen 650 mg 05/27/19 23:35 Tylenol PO Q4H PRN Pain MILD(1-3)/Fever >100.5/LEVI Enoxaparin Sodium 40 mg 05/28/19 10:00 05/28/19 09:44 Lovenox SUB-Q 40 mg QDAY SLIM Administration Sodium Chloride 1,000 mls @ 150 mls/hr 05/29/19 08:00 Nacl 0.9% 1000 Ml IV DIRECT SLIM Morphine Sulfate 2 mg 05/27/19 23:35 Morphine IV Q4H PRN Pain, Moderate (4-6) Ondansetron HCl 4 mg 05/27/19 23:35 Zofran IV Q8H PRN Nausea And Vomiting Pantoprazole Sodium 40 mg 05/29/19 10:00 Protonix PO BID SLIM Sodium Chloride 10 ml 05/28/19 10:00 05/28/19 22:15 Sodium Chloride Flush Syringe 10 Ml IV 10 ml BID SLIM Administration Sodium Chloride 10 ml 05/27/19 23:35 Sodium Chloride Flush Syringe 10 Ml IV PRN PRN LINE FLUSH
--- NOTE | 2019-05-29 10:10 | Gastroenterology Progress Note ---
<EMILY SIDHU - Last Filed: 05/29/19 10:21> Assessment and Plan 1.ingestion of caustic substance (bleach and ammonia) -s/p EGD 05/28/19 that showed: * Normal duodenum * Mild diffuse gastritis of the stomach with erythema * GE junction at 37cm from the incisors * Per Zargar Classification, patient with 2A grade esophageal injury. Sp ecifically, diffuse mucosal exudates and sloughing of mucosa without necrosis nor deep ulcers -clinically, patient is tolerating liquids w/o difficulty. Denies abd pain or N/v. -okay to advance diet to regular -continue PPI to prevent stress ulcer for next 30 days -repeat labs this am- if labs stable and tolerates advanced diet, patient okay to be d/c per GI standpoint on PPI with f/u in clinic (patient unfortunately is at significant elevated risk for esophageal CA and will require routine EGD's starting in 2028 (10yrs after the ingestion) or sooner if develops symptoms) -will sign off, please call if needed 2. suicide attempt- psych following Subjective Date of service: 05/29/19 Principal diagnosis: bleach ingestion Interval history: No acute distress. Denies abd pain or N/v. Tolerating liquids. Objective - Constitutional Vitals: Temp Pulse Resp BP Pulse Ox 97.6 F 68 14 115/65 99 05/29/19 08:00 05/29/19 05:00 05/29/19 04:00 05/29/19 02:51 05/29/19 08:09 General appearance: no acute distress - Respiratory Respiratory effort: normal - Cardiovascular Rhythm: regular - Gastrointestinal General gastrointestinal: Present: soft, non-tender, non-distended, normal bowel sounds - Labs CBC & Chem 7: 05/29/19 09:39 05/29/19 09:39 Labs: Laboratory Results - last 24 hr 05/28/19 05/29/19 08:14 09:39 WBC 6.9 RBC 4.17 Hgb 12.4 Hct 36.1 MCV 87 MCH 30 MCHC 34 RDW 12.9 L Plt Count 323 Lymph % (Auto) 38.3 H Delta % (Auto) 6.3 Eos % (Auto) 1.5 Baso % (Auto) 0.5 Lymph # 2.7 Delta # 0.4 Eos # 0.1 Baso # 0.0 Seg Neutrophils % 53.4 Seg Neutrophils # 3.7 HCG, Qual Negative <TERE LYNCH - Last Filed: 05/29/19 21:46> Assessment and Plan pt seen and examined and agree with the above, telephone interpreter deaf utilized, patient reports slight sore mouth otherwise feeling better, will sign off with fdc plan as above - Patient Problems (1) Ingestion of caustic substance Current Visit: Yes Status: Acute Objective - Constitutional Vitals: Temp Pulse Resp BP Pulse Ox 98.8 F 70 18 106/60 99 05/29/19 16:20 05/29/19 16:20 05/29/19 16:20 05/29/19 16:20 05/29/19 16:20 - Labs CBC & Chem 7: 05/29/19 09:39 05/29/19 09:39 Labs: Laboratory Results - last 24 hr 05/29/19 05/29/19 09:39 09:39 WBC 6.9 RBC 4.17 Hgb 12.4 Hct 36.1 MCV 87 MCH 30 MCHC 34 RDW 12.9 L Plt Count 323 Lymph % (Auto) 38.3 H Delta % (Auto) 6.3 Eos % (Auto) 1.5 Baso % (Auto) 0.5 Lymph # 2.7 Delta # 0.4 Eos # 0.1 Baso # 0.0 Seg Neutrophils % 53.4 Seg Neutrophils # 3.7 Sodium 143 Potassium 3.9 Chloride 106.8 Carbon Dioxide 24 Anion Gap 16 BUN 5 L Creatinine 0.6 L Estimated GFR > 60 BUN/Creatinine Ratio 8 Glucose 130 H Calcium 8.8 Total Bilirubin 0.40 AST 64 H ALT 90 H Alkaline Phosphatase 53 Total Protein 7.0 Albumin 3.7 L Albumin/Globulin Ratio 1.1
[2019-05-29 10:16] LABS: Alanine Aminotransferase 90 units/L (7-56); Albumin 3.7 g/dL (3.9-5); BUN/Creatinine Ratio 8; Blood Urea Nitrogen 5 mg/dL (7-17); Calcium 8.8 mg/dL (8.4-10.2); Hemolysis Index 8
--- NOTE | 2019-05-29 14:43 | Progress Note ---
Subjective - Reason for Consult Consult date: 05/29/19 Reason for consult: Pscyhiatry Follow-up - Chief Complaint Chief complaint: 23 y.o. female who presented to the ER for suicide attempt by drinking bleach and ammonia per the record. Today the assessment could not be completed because the paper and pulp mill worker phone isn't working. The patient's assigned nurse was informed that a certified paper and pulp mill worker/paper and pulp mill worker phone line is needed for me the provider to complete the psy assessment. Mental Status Exam - Vital signs Last Vital Signs Temp 97.6 F 05/29/19 12:00 Pulse 82 05/29/19 13:00 Resp 14 05/29/19 12:00 BP 106/60 05/29/19 11:31 Pulse Ox 98 05/29/19 12:00 - Exam Narrative exam: Unable to complete the MSE at this time, the paper and pulp mill worker is still not working. Assessment and Plan Impression: Today the assessment could not be completed at this time because the paper and pulp mill worker phone isn't working. Recommendation/Plan: Continue 1013 and attempt to reassess the patient in [address] Cora Norwood.
[2019-05-30] MEDS: NACL 0.9% 1000 ML 1,000 ML IV SCH ×3 (00:14→22:39)
[2019-05-30] MEDS: PROTONIX PO SCH ×2 (10:45→22:00)
[2019-05-30] MEDS: LOVENOX SUB-Q SCH (10:45)
[2019-05-30] MEDS: SODIUM CHLORIDE FLUSH SYRINGE 10 ML IV SCH ×2 (10:46→23:50)
--- NOTE | 2019-05-30 14:29 | Progress Note ---
Subjective - Reason for Consult Consult date: 05/30/19 Reason for consult: Psychiatry Follow-up - Chief Complaint Chief complaint: "I drink bleach by mistake" 23 y.o. female who presented to the ER for suicide attempt by drinking bleach and ammonia per the record. Today the patient was calm during the assessment. She stated that she was drinking a beer and mistakenly drink bleach/ammonia while in the laundry room of her home. She was guarded when asked questions about her mental health and current situation. Per collateral information from her Jaya Forman who was at the bedside, he stated that the police was at their home when his drink the bleach/ammonia. He would not state why the police was at his home. He believe that his may have made a mistake by drinking both substances. The patient denies SI/HI's and AVH's. She stated that she does not normally drink (etoh) to get intoxicated. She denies recreational drug use. Mental Status Exam - Vital signs Last Vital Signs Temp 98.2 F 05/30/19 06:18 Pulse 64 05/30/19 12:17 Resp 18 05/30/19 12:17 BP 99/61 05/30/19 12:17 Pulse Ox 99 05/30/19 12:17 - Exam Narrative exam: MSE: Appearance: calm, cooperative Behavior: regular eye contact Speech: regular rate and tone Mood: somewhat guarded Affect: congruent to mood Thought Process: circumstantial Thought Content: denies SI/HI's and AVH's Motor Activity: sitting up in bed Cognition: A/O x3 Insight: variable Judgment: poor Assessment and Plan Impression: Intentional ingestion of bleach and ammonia. The patient was intoxicated on arrival to the ER. Today the patient was calm and cooperative during the assessment. Recommendation/Plan: Continue 1013 and discuss more details with the patient reference her actions. Dispo: The patient was referred to inpatient psy services Will staff with Dr Cora Norwood.
--- NOTE | 2019-05-30 17:51 | Progress Note ---
Assessment and Plan 23-year-old woman with no medical problems was brought to the emergency room for evaluation. Family at bedside state that she drinks 6 beers today, she then felt dizzy and does not remember what happened. Also state that she has been de mon possessed, edema and still hurry to do things to herself. after drinking 6 beers she drinks some cleaning agent, but she does not know the name, she was not aware that she was drinking 8, she said augusto told her to do it. Currently he has burning in her stomach, no psychiatric history SI, attempt 1013, MH consult Gastritis -likely due to drinking caustic cleaning material -EGD report reviewed, -diffuse gastritis seen on EGD. PPI, needs egd every 2-3 years for the next 10 years, as her risk is increased for malignancies. dvt ppx- scds and early ambulation -Disposition: Mediclally lceared for D/c. When cleared by Psych Subjective Date of service: 05/30/19 Principal diagnosis: bleach ingestion Interval history: Lying quietly in bed in no distress. Speaks little Greenlandic. Tolerating regular diet Objective - Exam Narrative Exam: Constitutional: Well-nourished well-developed. In no distress Head: Normocephalic atraumatic Eyes: Pupils are equal round and reactive to light Nose: No enlarged turbinates, no septal deviation. Mouth: Moist mucous membranes. Neck: Supple no thyromegaly. No bruit. No JVD Heart: Regular rate and rhythm, S1-S2 normal. No rubs murmurs or gallop Lungs: Clear to auscultation bilaterally. no rales or rhonchi Abdomen: Soft, nontender. Bowel sound are present. Extremities: No edema, no cyanosis, no clubbing. Neuro: Alert oriented Oriented x3. No focal sensory or motor deficit. Skin: No rashes or hyperpigmented spots Musculoskeletal system: No joint pain or swelling Hematological: No petechia or subcutanous hemorrhages. Immunological: No multiple septic spots on the skin Lymphatic: No generalized lymphadenopathy Psychiatry: Euthymic. Calm. - Constitutional Vitals: Vital Signs - 12hr 05/30/19 05/30/19 06:18 12:17 Temperature 98.2 F Pulse Rate 75 64 Respiratory 16 18 Rate Blood Pressure 119/78 Blood Pressure 99/61 [Right] O2 Sat by Pulse 97 99 Oximetry - Labs CBC & Chem 7: 05/29/19 09:39 05/29/19 09:39
[2019-05-31] MEDS: NACL 0.9% 1000 ML 1,000 ML IV SCH ×3 (05:46→22:37)
--- NOTE | 2019-05-31 07:37 | Progress Note ---
Subjective - Reason for Consult Consult date: 05/31/19 Reason for consult: Psychiatric Follow-up Evaluation - Chief Complaint Chief complaint: "I feel better" Patient is a 23 y.o. female who presented to the ER for suicide attempt by drinking bleach and ammonia per the record. Today the patient is calm and cooperative during the assessment. yeast tender ( [id number]) used via language line to communicate with patient. She states, " I feel better. I was not trying to hurt myself" She continues to be guarded during the assessment. She reports normal sleep and appetite. She endorses good support system ( and sister ). She denies SI/HI's, A/VH's, and delusions. Mental Status Exam - Vital signs Last Vital Signs Temp 99.2 F 05/30/19 21:45 Pulse 66 05/30/19 21:45 Resp 16 05/30/19 21:45 BP 107/62 05/30/19 21:45 Pulse Ox 97 05/30/19 21:45 - Exam Narrative exam: Mental Status Exam Appearance: calm, cooperative Behavior: regular eye contact Speech: regular rate and tone Mood: " I feel better"; somewhat guarded Affect: congruent to mood Thought Process: circumstantial Thought Content: denies SI/HI's, AVH's, delusions Motor Activity: sitting up in bed Cognition: A/O x 3 Insight: variable Judgment: poor Assessment and Plan Impression: Intentional ingestion of bleach and ammonia. The patient was intoxicated on arrival to the ER. Today the patient is calm and cooperative during the assessment. Patient continues to be somewhat guarded during the assessment. She denies SI/HI's, A/VH's, and delusions. Recommendation/Plan: 1. Continue 1013. Will reassess in 24 hours. 2. At this time patient prefers talk therapy. She refuses medication for depression. Disposition: The patient was referred to inpatient psychiatric services. Will staff with Dr. Cora Vasques.
[2019-05-31] MEDS: LOVENOX SUB-Q SCH (09:40)
[2019-05-31] MEDS: PROTONIX PO SCH ×2 (09:40→22:27)
[2019-05-31] MEDS: SODIUM CHLORIDE FLUSH SYRINGE 10 ML IV SCH ×2 (09:43→22:00)
--- NOTE | 2019-05-31 19:29 | Progress Note ---
Assessment and Plan 23-year-old woman with no medical problems was brought to the emergency room for evaluation. Family at bedside state that she drinks 6 beers today, she then felt dizzy and does not remember what happened. Also state that she has been de mon possessed, edema and still hurry to do things to herself. after drinking 6 beers she drinks some cleaning agent, but she does not know the name, she was not aware that she was drinking 8, she said augusto told her to do it. Currently he has burning in her stomach, no psychiatric history SI, attempt 1013, MH consulted and following Gastritis -likely due to drinking caustic cleaning material -EGD report reviewed, -diffuse gastritis seen on EGD. PPI, needs egd every 2-3 years for the next 10 years, as her risk is increased for malignancies. dvt ppx- scds and early ambulation -Disposition: Mediclally cleared for D/c, when cleared by Psych Subjective Date of service: 05/31/19 Principal diagnosis: bleach ingestion Interval history: Lying quietly in bed in no distress. Speaks little Syriac. Tolerating regular diet. No new complaint. Objective - Exam Narrative Exam: Constitutional: Well-nourished well-developed. In no distress Head: Normocephalic atraumatic Eyes: Pupils are equal round and reactive to light Nose: No enlarged turbinates, no septal deviation. Mouth: Moist mucous membranes. Neck: Supple no thyromegaly. No bruit. No JVD Heart: Regular rate and rhythm, S1-S2 normal. No rubs murmurs or gallop Lungs: Clear to auscultation bilaterally. no rales or rhonchi Abdomen: Soft, nontender. Bowel sound are present. Extremities: No edema, no cyanosis, no clubbing. Neuro: Alert oriented Oriented x3. No focal sensory or motor deficit. Skin: No rashes or hyperpigmented spots Musculoskeletal system: No joint pain or swelling Hematological: No petechia or subcutanous hemorrhages. Immunological: No multiple septic spots on the skin Lymphatic: No generalized lymphadenopathy Psychiatry: Euthymic. Calm. - Constitutional Vitals: Vital Signs - 12hr 05/31/19 05/31/19 05/31/19 07:48 12:44 17:42 Temperature 99.1 F 99.0 F Pulse Rate 74 93 H Respiratory 18 18 Rate Blood Pressure 112/61 107/68 O2 Sat by Pulse 98 96 97 Oximetry - Labs CBC & Chem 7: 05/29/19 09:39 05/29/19 09:39
[2019-06-01] MEDS: NACL 0.9% 1000 ML 1,000 ML IV SCH (04:50)
[2019-06-01 05:20] LABS: Basophils % (Auto) 0.3 % (0.0-1.8); Eosinophils # (Auto) 0.2 K/mm3 (0.0-0.4); Eosinophils % (Auto) 1.9 % (0.0-4.3); Hematocrit 36.6 % (30.3-42.9); Hemoglobin 12.4 gm/dl (10.1-14.3); Lymphocytes # (Auto) 2.7 K/mm3 (1.2-5.4); Lymphocytes % (Auto) 32.5 % (13.4-35.0); Mean Corpuscular HGB Conc 34 % (30-34); Mean Corpuscular Volume 86 fl (79-97); Monocytes # (Auto) 0.5 K/mm3 (0.0-0.8); Monocytes % (Auto) 6.2 % (0.0-7.3); Platelet Count 313 K/mm3 (140-440); Red Blood Count 4.27 M/mm3 (3.65-5.03); Red Cell Distribution Width 12.8 % (13.2-15.2)
[2019-06-01 05:33] LABS: Alanine Aminotransferase 123 units/L (7-56); Albumin 3.9 g/dL (3.9-5); BUN/Creatinine Ratio 12; Blood Urea Nitrogen 6 mg/dL (7-17); Calcium 8.8 mg/dL (8.4-10.2); Hemolysis Index 1
[2019-06-01] MEDS: LOVENOX SUB-Q SCH (09:45)
[2019-06-01] MEDS: PROTONIX PO SCH ×2 (09:45→21:01)
--- NOTE | 2019-06-01 14:26 | Progress Note ---
Subjective - Reason for Consult Consult date: 06/01/19 Reason for consult: Psychiatry Follow-up - Chief Complaint Chief complaint: "I love myself and family" Patient is a 23 y.o. female who presented to the ER for suicide attempt by drinking bleach and ammonia per the record. Today the patient was calm and cooperative during the assessment. The sales clerk supervisor line ([id number]) was used. The patient and her stated that the police (previous notes) was at their home because of a altercation between family members. The patient stated that 2 other families reside at their home. She is adamant that the bleach bottle didn't have a cap on it when she mistakenly ingested it. She stated that she never swallowed the bleach. Her Mr Catalan stated that his actions were a mistake. The patient's have been at the bedside the entire abel she have been in the hospital. The patient denies SI/HI's and AVH's. Per the staff, the patient have been pleasant since her arrival to the hospital. Mental Status Exam - Vital signs Last Vital Signs Temp 99.6 F 06/01/19 11:56 Pulse 86 06/01/19 11:56 Resp 22 06/01/19 11:56 BP 108/68 06/01/19 11:56 Pulse Ox 97 06/01/19 11:56 - Exam Narrative exam: MSE: Appearance: calm, cooperative Behavior: regular eye contact Speech: regular rate and tone Mood: "okay" Affect: congruent to mood Thought Process: logical Thought Content: denies SI/HI's and AVH's Motor Activity: sitting up in bed Cognition: A/O x3 Insight: appropriate Judgment: appropriate Assessment and Plan Impression: Today the patient was calm and cooperative during the assessment. The patient is no threat to self. DDx: R/O MDD Suicide Risk Assessment I. This screening and assessment is based on information collected from the following sources: II. SUICIDE RISK SCREENING (within last 30 days): A.) Suicidal thoughts/behaviors: Yes SUICIDE RISK ASSESSMENT III. FACTORS THAT INCREASE RISK: A.) Demographic and Substance Use Factors: Yes (Marijuana, Cocaine, and Marijuana) B.) Current/Recent Factors (within past 3 months): Psychosocial/Environmental Factors: NA Physical Illness: None Cognitive/Psychological Factors: None C.) Historical Factors: None D.) Diagnostic/Symptom/Treatment Factors: None E.) Acute Risk Factor Severity (DESC; MILD/MOD/SEVERE): Mild Other factors for this individual that increase risk: None IV. FACTORS THAT DECREASE RISK: Resilience/Protective Factors: NA Other factors for this individual that decrease risk: Patient denies a desire to harm self V. Clinician's Formulation of Risk and Determination of level of Care: This is 23 y.o. female who ingested bleach prior to coming to the ER. She stated that she was not trying to kill herself. She acknowledged that she was intoxicated when she drink bleach by mistake. Since being hospitalized the patient has consistently denied the desire to harm herself. The patient is not impaired by substance. She is able to take care of her ADLs and is not at imminent risk of harm to self or others. Consequently, it is the opinion of the treatment team that the patient is at low risk of suicide and does not meet criteria to continue an involuntary psychiatric hold. Estimation of Imminent Risk: Low due to the above explanation. Determination of Level of Care based on Suicide Risk: Outpatient follow-up. . Plan and Interventions based on Suicide Risk: This patient will likely be stepped down to an outpatient mental health center in the community upon discharge and follow-up within 7 days of her discharge from the hospital. VII. Discharge/After Hours Support Plan: Patient can return back to the ER, call 911 or crisis line if symptoms of depression, anxiety, suicidality return. Recommendation/Plan: Rescind 1013. Discussed the importance to abstain from excessive alcohol consumption (etoh). Dispo: The patient was given a referral for [facility] for rehab services if indicated. Will staff with Dr Cora Norwood.
[2019-06-01] MEDS: D5/0.45NS 1,000 ML IV SCH (17:08)
[2019-06-01] MEDS: SODIUM CHLORIDE FLUSH SYRINGE 10 ML IV SCH ×2 (18:32→21:01)
--- NOTE | 2019-06-01 20:27 | Progress Note ---
Assessment and Plan 23-year-old woman with no medical problems was brought to the emergency room for evaluation. Family at bedside state that she drinks 6 beers today, she then felt dizzy and does not remember what happened. Also state that she has been de mon possessed, edema and still hurry to do things to herself. after drinking 6 beers she drinks some cleaning agent, but she does not know the name, she was not aware that she was drinking 8, she said augusto told her to do it. Currently he has burning in her stomach, no psychiatric history - SI, attempt 1013, MH consulted and following\ - Worsening LFT IV hydration Gastritis -likely due to drinking caustic cleaning material -EGD report reviewed, -diffuse gastritis seen on EGD. PPI, needs egd every 2-3 years for the next 10 years, as her risk is increased for malignancies. dvt ppx- scds and early ambulation -Disposition: D/c if LFT is trending down words Subjective Date of service: 06/01/19 Principal diagnosis: bleach ingestion Interval history: Lying quietly in bed in no distress. Speaks little Ukrainian. Tolerating regular diet. No new complaint. Objective - Exam Narrative Exam: Constitutional: Well-nourished well-developed. In no distress Head: Normocephalic atraumatic Eyes: Pupils are equal round and reactive to light Nose: No enlarged turbinates, no septal deviation. Mouth: Moist mucous membranes. Neck: Supple no thyromegaly. No bruit. No JVD Heart: Regular rate and rhythm, S1-S2 normal. No rubs murmurs or gallop Lungs: Clear to auscultation bilaterally. no rales or rhonchi Abdomen: Soft, nontender. Bowel sound are present. Extremities: No edema, no cyanosis, no clubbing. Neuro: Alert oriented Oriented x3. No focal sensory or motor deficit. Skin: No rashes or hyperpigmented spots Musculoskeletal system: No joint pain or swelling Hematological: No petechia or subcutanous hemorrhages. Immunological: No multiple septic spots on the skin Lymphatic: No generalized lymphadenopathy Psychiatry: Euthymic. Calm. - Constitutional Vitals: Vital Signs - 12hr 06/01/19 06/01/19 11:56 16:46 Temperature 99.6 F 99.4 F Pulse Rate 86 98 H Respiratory 22 22 Rate Blood Pressure 108/68 127/74 O2 Sat by Pulse 97 97 Oximetry - Labs CBC & Chem 7: 06/01/19 04:42 06/01/19 04:42 Labs: Abnormal lab results 06/01/19 06/01/19 Range/Units 04:42 04:42 RDW 12.8 L (13.2-15.2) % Potassium 3.5 L (3.6-5.0) mmol/L BUN 6 L (7-17) mg/dL Creatinine 0.5 L (0.7-1.2) mg/dL AST 70 H (5-40) units/L ALT 123 H (7-56) units/L
[2019-06-02 04:30] LABS: Basophils % (Auto) 0.3 % (0.0-1.8); Eosinophils # (Auto) 0.1 K/mm3 (0.0-0.4); Eosinophils % (Auto) 1.9 % (0.0-4.3); Hematocrit 39.3 % (30.3-42.9); Hemoglobin 13.5 gm/dl (10.1-14.3); Lymphocytes # (Auto) 2.4 K/mm3 (1.2-5.4); Lymphocytes % (Auto) 30.8 % (13.4-35.0); Mean Corpuscular HGB Conc 34 % (30-34); Mean Corpuscular Volume 86 fl (79-97); Monocytes # (Auto) 0.5 K/mm3 (0.0-0.8); Monocytes % (Auto) 6.6 % (0.0-7.3); Platelet Count 314 K/mm3 (140-440); Red Blood Count 4.57 M/mm3 (3.65-5.03); Red Cell Distribution Width 12.9 % (13.2-15.2)
[2019-06-02 04:55] LABS: Alanine Aminotransferase 111 units/L (7-56); BUN/Creatinine Ratio 10; Blood Urea Nitrogen 6 mg/dL (7-17); Calcium 9.1 mg/dL (8.4-10.2); Hemolysis Index 5
[2019-06-02] MEDS: D5/0.45NS 1,000 ML IV SCH (08:41)
[2019-06-02] MEDS: LOVENOX SUB-Q SCH (10:20)
[2019-06-02] MEDS: PROTONIX PO SCH (10:39)
[2019-06-02] MEDS: SODIUM CHLORIDE FLUSH SYRINGE 10 ML IV SCH (10:42)
[2019-06-02 13:13] VITALS: BP 134/74
--- NOTE | 2019-06-02 14:13 | Discharge Summary ---
Providers - Providers Date of Admission: 05/27/19 23:35 Date of discharge: 06/02/19 Attending physician: MARIA ELENA LAND 05/27/19 21:16 Consult to Physician [CONS] Urgent Comment: Consulting Provider: NANCY CORREA Physician Instructions: Reason For Exam: toxig bleach ingestion 05/27/19 21:17 Consult to Mental Health [CONS] Urgent Reason For Exam: psych Place consult to:: alliance director senior billing consultant Notified:: awaiting call back 05/27/19 23:37 psychiatry consult [Consult to Mental Health] [CONS] Routine Reason For Exam: ingestion of caustic agent, SI Place consult to:: PSYCH Notified:: on 05/27/19 Comment:: has seen patient. [facility] Reason for admission: suicidal ideation by drinking caustic soda Condition: Serious Pertinent studies: CT scan of the head was unremarkable. Chest x-ray was normal. Chest x-ray was normal Procedures: EGD that shows antral gastritis Hospital course: 23-year-old woman with no medical problems was brought to the emergency room for evaluation. Family at bedside state that she drinks 6 beers today, she then felt dizzy and does not remember what happened. Also state that she has been demon possessed, edema and still hurry to do things to herself. Today after drinking 6 beers she drinks some cleaning agent, but she does not know the name, she was not aware that she was drinking 8, she said demons told her to do it. Currently s has burning in her stomach, no psychiatric history. Most on PPI. GI consult was obtained. EGD was done. Antral gastritis identified. Psych consult obtained. After evaluation patient's was 1013, was determined to be safe to be discharged to her family. She was discharged today to follow primary care physician in 2-5 days. Also to follow up with a psychiatrist in 1 week. Patient has verbalized no intention of hurting herself or hurt somebody. She claimed that this was. And accidents-been drinking a lot of be that she didn't distinguishing which was caustic soda which was being. However distillery is b eing takes with lenticular with a custom motorcycle painter. The psychiatric said it was safe to discharge the patient to her family. Disposition: DC-01 TO HOME OR SELFCARE Time spent for discharge: 35 min - Discharge Diagnoses (1) Ingestion of caustic substance Status: Acute (2) Suicidal behavior with attempted self-injury Status: Acute Core Measure Documentation - Palliative Care Palliative Care/ Comfort Measures: Not Applicable - Core Measures Any of the following diagnoses?: none Exam - Physical Exam Narrative exam: Constitutional: Well-nourished well-developed. In no distress Head: Normocephalic atraumatic Eyes: Pupils are equal round and reactive to light Nose: No enlarged turbinates, no septal deviation. Mouth: Moist mucous membranes. Neck: Supple no thyromegaly. No bruit. No JVD Heart: Regular rate and rhythm, S1-S2 normal. No rubs murmurs or gallop Lungs: Clear to auscultation bilaterally. no rales or rhonchi Abdomen: Soft, nontender. Bowel sound are present. Extremities: No edema, no cyanosis, no clubbing. Neuro: Alert oriented Oriented x3. No focal sensory or motor deficit. Skin: No rashes or hyperpigmented spots Musculoskeletal system: No joint pain or swelling Hematological: No petechia or subcutanous hemorrhages. Immunological: No multiple septic spots on the skin Lymphatic: No generalized lymphadenopathy Psychiatry: Euthymic. Calm. - Constitutional Vitals: Temp Pulse Resp BP Pulse Ox 98.3 F 87 19 134/74 97 06/02/19 12:47 06/02/19 12:47 06/02/19 12:47 06/02/19 12:47 06/02/19 12:47 Plan Follow up with: Micky Downey [facility] [Outside] - 06/06/19 7:45 am (Wednesday - Wednesday 8:00am - 5:00pm. Walk-In only Must arrive at 7:45 as available slots are first come, first served. To be eligible for services, you must bring the following with you: 1. Proof of Identity 2. Proof of Residence 3. Proof of Income 4. Insurance Cards 5. Referral documents and/or hospital discharge papers.) STEPHANY URIOSTEGUI MD [Primary Care Provider] - 3-5 Days Prescriptions: Pantoprazole [Protonix TAB] 40 mg PO QDAY #30 tablet
== END 2019-06-02 16:00 | disposition home or self-care (01) | DRG 918 ==
LOC: ED 21:12 → IMCU 23:35 → 3A 05-29 13:39
PROVIDERS: ADMIT Internal Medicine; ATTEND Family Medicine
PROC: 0DJ08ZZ Inspection of Upper Intestinal Tract, Via Natural or Artificial Opening Endoscopic (ICD-10-PCS; principal; 2019-05-28)
DX: T54.3X2A Toxic effect of corrosive alkalis and alkali-like substances, intentional self-harm, initial encounter (principal); K29.60 Other gastritis without bleeding; T14.91XA Suicide attempt, initial encounter; Y92.89 Other specified places as the place of occurrence of the external cause; Z82.49 Family history of ischemic heart disease and other diseases of the circulatory system; Z83.3 Family history of diabetes mellitus
CPT/HCPCS: 36415; 70450; 71045; 72040; 80048; 80053; 80307; 80320; 81001; 81025; 82550; 83735; 84703; 85025; 85027; 85610; 85730; 93005; 93010; 96361; 96374; 96375; G0378; C9113; G0480; J1100; J1650; J2001; J2250; J2370; J2405; J2704; J7030

== ENCOUNTER 2020-06-06 08:56 | Inpatient (IN) | payer OTHER ==
--- NOTE | 2020-05-30 11:06 | History and Physical Report ---
History of Present Illness Date of examination: 05/30/20 Chief complaint: repeat c/s + BTL History of present illness: 24 to at 39w c/b prior c/s x 2, hx PPROM at 35 weeks on 17-OHP, ASCUS/HPV neg, elevated 1hr GTT, nl 3hr GTT, Class II Obesity presenting for repeat c/s + BTL. Desires permanent sterilization. Denies labor complaints or PIH symptoms. +FM. Past History Past Surgical History: section (x2) [employer] History: abnormal PAP smear (ACUS/HPV neg) Family/Genetic History: diabetes Social history: no significant social history - Obstetrical History : 3 Para: 2 Hx # Term Pregnancies: 1 Number of Pregnancies: 1 Number of Living Children: 2 Medications and Allergies Allergies Allergy/AdvReac Type Severity Reaction Status Date / Time No Known Allergies Allergy Unverified 05/27/19 22:46 Home Medications Medication Instructions Recorded Confirmed Last Taken Type Pantoprazole [Protonix TAB] 40 mg PO QDAY #30 tablet 06/02/19 Unknown Rx Review of Systems All systems: negative (expect HPI) - Physical Exam Breasts: Positive: deferred Abdomen: Positive: normal appearance, other (gravid) - Obstetrical FHR: category 1 Results All other labs normal. Assessment and Plan - Patient Problems (1) S/P Status: Acute Plan to address problem: --For repeat C/s + BTL --Counselled and consented in the chart
[2020-06-06] MEDS ORDERED: ceFAZolin/Water 2 GM/20 ML 2 GM/20 ML SYRINGE IV NR (10:00)
[2020-06-06] MEDS ORDERED: LACTATED RINGERS 1,000 ML IV SCH (10:00)
[2020-06-06] MEDS ORDERED: FAMOTIDINE 20 MG/2 ML INJ IV SCH (10:00)
[2020-06-06] MEDS ORDERED: OXYTOCIN 20 UNIT/1000ML DRIP 20 UNITS/1,000 ML BAG IV SCH ×2 (10:00→16:00)
[2020-06-06] MEDS ORDERED: BICITRA ORAL LIQD 30ML PO SCH (10:00)
[2020-06-06] MEDS ORDERED: METOCLOPRAMIDE 10 MG/2 ML INJ IV SCH (10:00)
[2020-06-06 10:29] LABS: Basophils # (Auto) 0.1 K/mm3 (0.0-0.1); Basophils % (Auto) 0.7 % (0.0-1.8); Eosinophils % (Auto) 0.5 % (0.0-4.3); Hematocrit 35.7 % (30.3-42.9); Hemoglobin 12.5 gm/dl (10.1-14.3); Lymphocytes # (Auto) 1.8 K/mm3 (1.2-5.4); Lymphocytes % (Auto) 24.5 % (13.4-35.0); Mean Corpuscular HGB Conc 35 % (30-34); Mean Corpuscular Volume 88 fl (79-97); Monocytes # (Auto) 0.6 K/mm3 (0.0-0.8); Monocytes % (Auto) 8.1 % (0.0-7.3); Platelet Count 299 K/mm3 (140-440); Red Blood Count 4.06 M/mm3 (3.65-5.03); Red Cell Distribution Width 13.8 % (13.2-15.2)
[2020-06-06 12:21] LABS: Hematocrit 33.5 % (30.3-42.9); Hemoglobin 11.9 gm/dl (10.1-14.3); Mean Corpuscular HGB Conc 35 % (30-34); Mean Corpuscular Volume 88 fl (79-97); Platelet Count 273 K/mm3 (140-440); Red Blood Count 3.82 M/mm3 (3.65-5.03); Red Cell Distribution Width 13.5 % (13.2-15.2)
[2020-06-06] MEDS ORDERED: ePHEDrine SULFATE 50 MG/1 ML INJ ONE (13:00)
[2020-06-06] MEDS ORDERED: SODIUM CHLORIDE 0.9% 100 ML ONE (13:00)
[2020-06-06] MEDS ORDERED: ONDANSETRON 4 MG/2 ML INJ ONE (13:00)
[2020-06-06] MEDS ORDERED: BUPIVACAINE/PF (0.5%) 5 MG/1 ML 30 ML VIAL INFILTRATI ONE (13:00)
[2020-06-06] MEDS ORDERED: PHENYLEPHRINE 10 MG/1 ML INJ SDV ONE (13:00)
[2020-06-06] MEDS ORDERED: DEXMEDETOMIDINE 200 MCG/2 ML VIAL IV ONE (13:00)
[2020-06-06] MEDS ORDERED: KETOROLAC 30 MG/1 ML INJ ONE (13:00)
[2020-06-06] MEDS ORDERED: WATER FOR IRRIG STERILE 1,500 ML BOTTLE IR ONE (13:05)
[2020-06-06] MEDS ORDERED: SODIUM CHLORIDE 0.9% IRR 1,500 ML BOTTLE IR ONE (13:05)
[2020-06-06] MEDS ORDERED: OXYTOCIN 10 UNIT/1 ML INJ ONE (13:29)
[2020-06-06] MEDS ORDERED: KETAMINE/STERILE WATER 50 MG/ML SYRINGE ONE (14:25)
--- NOTE | 2020-06-06 15:25 | Procedure Note ---
OB Delivery Note - Delivery Date of Delivery: 06/06/20 Surgeon: MARSHAL OSBORN JR Estimated blood loss: other (1200) - Section Preop diagnosis: desires sterilization Postop diagnosis: same section procedure: section, repeat low transverse, bilateral tubal ligation Disposition: PACU Complications: none Narrative: Indication: 24-year-old G3, P2 at 39 weeks presenting for repeat and permanent sterilization. Findings: Normal uterus, tubes and ovaries. Clear fluid. No nuchal cord. Female Apgars 8/9 3859 g EBL 1200 urine output 100 IV fluids 2000 Procedure: Patient was taken to the operating room prepped and draped in the usual sterile fashion. Pfannenstiel skin incision was made and carried down to the underlying fascia. Fascia was incised and the incision was distended bilaterally. Rectus fascia was dissected off the rectus muscle superiorly and inferiorly. Peritoneum was identified and entered. Peritoneal incision extended superiorly and inferiorly. The bladder was visualized. The bladder blade was placed. Uterine hysterotomy incision was made and extended bilaterally. The baby was delivered in the typical vertex fashion. Baby was bulb suction at delivery. The cord was cut and clamped and handed off to the team. The placenta was delivered spontaneously. The uterus was exteriorized and cleared of all clots and debris. Uterine incision was closed with a 0 Vicryl in a running locked fashion. Good hemostasis was noted. The urine was noted to be clear. Uterus, tubes, and ovaries were returned to the abdominal cavity. Bilateral gutters were cleared and the abdomen and pelvis were irrigated. Good hemostasis noted. Next a bilateral tubal ligation was completed. Starting with the right fallopian tube, the tube was grabbed with a [place] clamp and the mesosalpinx was opened with a hemostat. 2-0 chromic suture was used to tie each end of the medial and then lateral end of the tube using the [place] fashion. The suture was then cut. The tube was then removed using Metzenbaum scissors. Same procedure performed on contralateral side with hemostasis noted. Attention was directed towards the rectus fascia which was reapproximated with 0 PDS in a running fashion. The subcutaneous tissue was irrigated and reapproximated with 2-0 Vicryl in a running fashion. Skin was closed with a 4-0 Vicryl in a subcuticular fashion. The procedure was completed and the patient tolerated the procedure well. All instruments and lap counts were correct x2. - A at 1 minute: 8 at 5 minutes: 9 Infant Gender: Female
[2020-06-06] MEDS ORDERED: MORPHINE 4 MG/1 ML INJ IV PRN (15:30)
[2020-06-06] MEDS ORDERED: SENNOSIDES 8.6 MG TAB PO PRN (15:30)
[2020-06-06] MEDS ORDERED: MAGNESIUM HYDROXIDE (MOM) ORAL LIQD UDC PO PRN (15:30)
[2020-06-06] MEDS ORDERED: HYDROCORTISONE 25 MG RECTAL SUPP PR PRN (15:30)
[2020-06-06] MEDS ORDERED: ONDANSETRON 4 MG/2 ML INJ IV PRN (15:30)
[2020-06-06] MEDS ORDERED: LANOLIN/ZINC/DIMETHICONE (LANSINOH) 7 GM TP PRN (15:30)
[2020-06-06] MEDS ORDERED: SIMETHICONE 80 MG CHEW TAB PO PRN (15:30)
[2020-06-06] MEDS ORDERED: PROMETHAZINE 25 MG RECT SUPP PR PRN (15:30)
[2020-06-06] MEDS ORDERED: WITCH HAZEL/ GLYCERIN PAD TP PRN (15:30)
[2020-06-06] MEDS ORDERED: NALOXONE 0.4 MG/1 ML INJ IV PRN (15:30)
--- NOTE | 2020-06-06 16:40 | Anesthesia Consultation ---
Anesthesia Consult and Med Hx Date of service: 06/06/20 - Airway Anesthetic Teeth Evaluation: Good ROM Head & Neck: Adequate Mental/Hyoid Distance: Adequate Mallampati Class: Class II Intubation Access Assessment: Probably Good - Pulmonary Exam CTA: Yes - Cardiac Exam Cardiac Exam: RRR - Pre-Operative Health Status ASA Pre-Surgery Classification: ASA2 Proposed Anesthetic Plan: Spinal - Pulmonary Hx Asthma: No COPD: No Hx Pneumonia: No - Cardiovascular System Hx Hypertension: No - Central Nervous System Hx Seizures: No Hx Psychiatric Problems: No - Endocrine Hx Renal Disease: No Hx End Stage Renal Disease: No Hx Liver Disease: Yes (Elevated LFTs) Hx Hypothyroidism: No Hx Hyperthyroidism: No - Hematic Hx Anemia: No Hx Sickle Cell Disease: No - Other Systems Hx Alcohol Use: No
--- NOTE | 2020-06-06 16:41 | Anesthesia Day of Surgery ---
Anesthesia Day of Surgery - Day of Surgery Patient Examined: Yes Patient H&P Reviewed: Yes Patient is NPO: Yes
--- NOTE | 2020-06-06 16:41 | Post Anesthesia Evaluation ---
- Post Anesthesia Evaluation Patient Participated: Yes Airway Patent: Yes Stable Respiratory Function: Yes Nausea/Vomiting: No Temp > 96.8F: Yes Pain Manageable: Yes Adequeate Hydration: Yes Anesthesia Complications: No Block Receding Appropriately: Yes
--- NOTE | 2020-06-06 16:43 | Progress Note ---
Regional Anesthesia Block - Regional Anesthesia Block Start Time: 16:30 Stop Time: 16:35 Performed By:: DELL MENDIOLA Procedure: U/S guided bilateral tap block performed for post-operative pain requested by Dr. Arzate. H&P & labs reviewed. Procedure explained, questions answered, consent obtained. Patient in the supine position with ekg, blood pressure cuff and pulse ox on and working in PACU. Timeout performed immediately before start of procedure. Probe placed in the mid-axillary line and the external oblique, internal oblique, and transverse abdominus muscles identified. Skin was cleansed with 0.5% Chlorahexadine and allowed to dry. A 4" 20 G Tam echogenic needle was advanced in plane until the tip was in the fascial plane between the internal oblique and the transverse abdominus. After negative aspiration 35 ml/side of [30 ml 0.5% Bupivacaine], [50 mcg dexmedetomidine], [8 mg dexamethasone], and [40 ml sterile saline] was injected in 5 ml increments with negative aspiration in between. Patient tolerated procedure well. Phan SRNA
[2020-06-06] MEDS: KETOROLAC 30 MG/1 ML INJ IV SCH ×2 (17:45→23:58)
[2020-06-07 06:13] LABS: Hematocrit 32.7 % (30.3-42.9); Hemoglobin 11.1 gm/dl (10.1-14.3)
[2020-06-07] MEDS: KETOROLAC 30 MG/1 ML INJ IV SCH ×2 (06:37→10:04)
--- NOTE | 2020-06-07 11:14 | Progress Note ---
Assessment and Plan - Patient Problems (1) S/P Current Visit: No Status: Acute Plan to address problem: Continue routine PP orders Keep dressing clean and dry Anticipate d/c home in 24-48 hrs if stable Subjective - Subjective Date of service: 06/07/20 Principal diagnosis: S/P repeat C/S w BTL; POD#1 Interval history: See admission H & P; OB operative note and PP progress notes Patient reports: appetite normal, voiding normally, pain well controlled, flatus, ambulating normally : doing well, bottle feeding (and ) Objective - Vital Signs Latest vital signs: Vital Signs Temp Pulse Resp BP BP Pulse Ox 06/07/20 10:04 20 06/07/20 08:40 98.1 F 66 20 101/64 06/07/20 06:12 97.8 F 72 18 98/60 98 06/07/20 01:29 98.0 F 67 18 110/66 97 06/06/20 21:59 97.5 F L 64 20 120/73 98 06/06/20 17:36 97.9 F 67 16 118/72 100 06/06/20 16:45 66 15 123/77 06/06/20 16:20 68 14 115/76 06/06/20 16:15 64 17 124/78 06/06/20 16:05 64 12 126/81 06/06/20 16:00 67 15 112/56 06/06/20 15:55 65 15 114/61 06/06/20 15:50 66 16 110/64 06/06/20 15:42 97.5 F L 67 32 H 99/49 06/06/20 12:49 102 H 96 06/06/20 12:44 91 H 97 06/06/20 12:41 97 H 93 06/06/20 12:39 90 98 06/06/20 12:34 92 H 97 06/06/20 12:28 85 97 06/06/20 12:23 85 97 06/06/20 12:18 94 H 98 06/06/20 12:13 78 97 06/06/20 12:09 98.3 F 81 20 103/61 103/61 97 06/06/20 12:08 83 97 06/06/20 12:03 84 97 06/06/20 11:58 80 96 06/06/20 11:53 80 97 Intake and Output 09/03/20 09/04/20 09/04/20 23:59 07:59 15:59 Intake Total 360 360 320 Output Total 130 900 400 Balance 230 -540 -80 Intake: IV 100 Oral 320 Intake, Free Water 260 360 Output: Urine 130 900 400 Indwelling Catheter 600 Uretheral (Samuels) 30 Void 300 400 Other: Total, Intake Amount 320 Total, Output Amount 300 400 # Voids Void 1 2 - Exam Breasts: Present: normal Cardiovascular: Present: Regular rate Lungs: Present: Normal air movement Abdomen: Present: soft, tenderness Uterus: Present: firm, fundal height below umbilicus (U-1) Incision: Present: dressed (no shadow drainage or bleeding noted) - Labs Labs: Abnormal lab results 06/06/20 Range/Units 12:12 MCHC 35 H (30-34) %
[2020-06-07] MEDS: oxyCODONE /ACETAMINOPHEN 5-325MG TAB PO PRN ×2 (14:54→22:54)
[2020-06-08] MEDS: IBUPROFEN 800 MG TAB PO PRN ×2 (05:27→21:32)
[2020-06-08] MEDS: oxyCODONE /ACETAMINOPHEN 5-325MG TAB PO PRN ×2 (10:36→17:55)
--- NOTE | 2020-06-08 16:05 | Progress Note ---
Subjective - Subjective Date of service: 06/08/20 Principal diagnosis: S/P repeat C/S w BTL; POD#2 Interval history: /postop day 2 S/P repeat section with BTL. Objective - Vital Signs Latest vital signs: Vital Signs Temp Pulse Resp BP BP Pulse Ox 06/08/20 10:36 20 06/08/20 08:18 98.0 F 77 20 97/50 97 06/08/20 00:14 98.2 F 80 20 101/59 97 06/07/20 16:50 98.1 F 80 20 112/72 Intake and Output 06/08/20 06/08/20 06/08/20 07:59 15:59 23:59 Intake Total 360 Balance 360 Intake: Oral 360 Other: Total, Intake Amount 120 # Voids Void 1
--- NOTE | 2020-06-08 17:09 | Progress Note ---
Assessment and Plan A: Postpatum day 2 S/P LTCS with BTL. P: Continue current management. Anticipate discharge tomorrow at home. Subjective - Subjective Date of service: 06/08/20 Principal diagnosis: S/P repeat C/S w BTL; POD#2 Interval history: /postop day 2 S/P repeat section with BTL. Patient reports: appetite normal, voiding normally, pain well controlled, flatus, ambulating normally, no dizzy ambulation, no nauseated [place]: doing well Objective - Vital Signs Latest vital signs: Vital Signs Temp Pulse Resp BP Pulse Ox 06/08/20 16:21 98.7 F 98 H 20 108/73 96 06/08/20 10:36 20 06/08/20 08:18 98.0 F 77 20 97/50 97 06/08/20 00:14 98.2 F 80 20 101/59 97 Intake and Output 06/08/20 06/08/20 06/08/20 07:59 15:59 23:59 Intake Total 360 Balance 360 Intake: Oral 360 Other: Total, Intake Amount 120 # Voids Void 1 - Exam Cardiovascular: Present: Regular rate, Normal S1, Normal S2 Lungs: Present: Clear to auscultation Abdomen: Present: normal appearance, soft, normal bowel sounds. Absent: distention, tenderness, guarding, rigidity Uterus: Present: normal, firm, fundal height below umbilicus. Absent: bogginess, tenderness Extremities: Present: normal. Absent: tenderness Incision: Present: normal
[2020-06-09] MEDS: IBUPROFEN 800 MG TAB PO PRN (04:59)
[2020-06-09 12:28] VITALS: BP 122/73
--- NOTE | 2020-06-09 12:34 | Progress Note ---
Assessment and Plan A: /postop day 3. Anemia. P: Discharge patient home today. Discussed with patient /postop discharge instructions and warning signs. Advised patient to continue taking her vitamins and iron supplements at home. Advised patient to avoid lifting, sexual intercourse, and housework. Advised patient to follow up at [facility] in 1 week for incision check. Patient voiced understanding of all instructions. Subjective - Subjective Date of service: 06/09/20 Principal diagnosis: S/P repeat C/S w BTL; POD#3 Interval history: postop day 3 S/P section with BTL. Patient desires discharge home. Patient reports: appetite normal, voiding normally, pain well controlled, flatus, ambulating normally, no dizzy ambulation, no nauseated [place]: doing well, nursing well Objective - Vital Signs Latest vital signs: Vital Signs Temp Pulse Resp BP Pulse Ox 06/09/20 12:10 98.4 F 87 16 122/73 98 06/09/20 08:25 98.5 F 72 16 104/65 96 06/09/20 00:42 98.2 F 72 20 105/66 97 06/08/20 17:55 20 06/08/20 16:21 98.7 F 98 H 20 108/73 96 Intake and Output 06/08/20 06/09/20 06/09/20 23:59 07:59 15:59 Intake Total 360 120 120 Balance 360 120 120 Intake: Oral 360 120 120 Other: Total, Intake Amount 120 120 120 # Voids Void 1 1 1 - Exam Cardiovascular: Present: Regular rate, Normal S1, Normal S2, No murmurs Lungs: Present: Clear to auscultation Abdomen: Present: normal appearance, soft, normal bowel sounds. Absent: distention, tenderness, guarding, rigidity Uterus: Present: normal, firm, fundal height below umbilicus. Absent: bogginess, tenderness Extremities: Present: normal. Absent: tenderness, edema Incision: Present: normal, dry, intact
--- NOTE | 2020-06-09 12:41 | Discharge Summary ---
Providers - Providers Date of Admission: 06/06/20 08:56 Date of discharge: 06/09/20 Attending physician: MARSHAL OSBORN JR, MD Primary care physician: NED STEWART MD Hospitalization Reason for admission: section Delivery: Procedure: section, bilateral tubal ligation complications: none Discharge diagnosis: IUP at term delivered baby: female Pertinent studies: Labs Hospital course: Stable hospital course. Condition at discharge: Good Disposition: DC-01 TO HOME OR SELFCARE - Discharge Diagnoses (1) Term delivered Status: Acute (2) Anemia Status: Acute Plan - Discharge Medications Prescriptions: Ibuprofen [Motrin 800 MG tab] 800 mg PO Q6H PRN #30 tablet PRN Reason: Pain, Mild (1-3) oxyCODONE /ACETAMINOPHEN [Percocet 5/325 mg] 1 tab PO Q6H PRN #30 tablet PRN Reason: Pain, Moderate (4-6) - Provider Discharge Summary Activity: routine, no sex for 6 weeks, no heavy lifting 4 weeks Diet: routine Instructions: routine Additional instructions: Continue taking your vitamins and iron supplements at home. Call your doctor immediately for: * Fever > 100.5 * Heavy vaginal bleeding ( >1 pad per hour) * Severe persistent headache * Shortness of breath * Reddened, hot, painful area to leg or breast * Drainage or odor from incision. * Keep incision clean and dry at all times and follow doctor's instructions regarding bathing/showering - Follow up plan Follow up: MARSHAL OSBORN JR, MD [Staff Physician] - 7 Days Forms: [facility] Discharge Summary
== END 2020-06-09 14:51 | disposition home or self-care (01) | DRG 785 ==
LOC: APU 08:56 → OB 17:36
PROVIDERS: ADMIT Obstetrics & Gynecology; ATTEND Obstetrics & Gynecology
PROC: 10D00Z1 Extraction of Products of Conception, Low, Open Approach (ICD-10-PCS; principal; 2020-06-06)
PROC: 0UB70ZZ Excision of Bilateral Fallopian Tubes, Open Approach (ICD-10-PCS; 2020-06-06)
DX: O99.214 Obesity complicating childbirth (principal); Z37.0 Single live birth; E66.9 Obesity, unspecified; O34.211 Maternal care for low transverse scar from previous cesarean delivery; O99.02 Anemia complicating childbirth; Z3A.39 39 weeks gestation of pregnancy; Z83.3 Family history of diabetes mellitus; Z03.818 Encounter for observation for suspected exposure to other biological agents ruled out
CPT/HCPCS: 36415; 85014; 85018; 85025; 85027; 86592; 86850; 86900; 86901; 88302; G0378; A6250; J0690; J1885; J2370; J2405; J2590; J2765; J3490; J7120; U0003-CS